=== PATIENT | male | born 1965 | race Caucasian/White ===

== ENCOUNTER 2019-07-21 23:44 | Inpatient (IN) ==
[2019-07-21] MEDS ORDERED: MoRPHine SULFATE 4 MG/ML 1 ML CARP\\VIAL IV STA (23:57)
[2019-07-21] MEDS ORDERED: ONDANSETRON INJ 2 MG/ML 2 ML VIAL IV STA (23:57)
[2019-07-22 00:33] LABS: Basophils # (auto) 0.03 K/uL (0-0.2); Basophils % (auto) 0.2 %; Eosinophils # (auto) 0.09 K/uL (0-0.5); Eosinophils % (auto) 0.7 %; Hematocrit (blood only) 46.1 % (42-52); Hemoglobin 16.5 g/dL (14.0-18.0); Immature Granulocytes # (auto) 0.27 K/uL (0.00-0.02); Lymphocytes % (auto) 18.2 %; Mean Corpuscular Hgb Conc 35.8 g/dL (32-36); Mean Corpuscular Volume 93.3 fL (80-100); Monocytes # (auto) 1.57 K/uL (0.11-0.59); Monocytes % (auto) 11.4 %; Neutrophils # (auto) 9.29 K/uL (1.4-6.5); Neutrophils % (auto) 67.5 %; Platelet Count 227 K/uL (130-400); RDW Coefficient of Variation 13.7 % (11.5-14.5); RDW Standard Deviation 46.6 fL (36.4-46.3); Red Blood Count 4.94 M/uL (4.7-6.1); White Blood Count 13.75 K/uL (4.8-10.8)
[2019-07-22 00:56] LABS: Alanine Aminotransferase 53 U/L (12-78); Albumin Level 2.9 gm/dl (3.4-5.0); Aspartate Aminotransferase 16 U/L (15-37); BUN Creatinine Ratio 21.4 (10-20); Blood Urea Nitrogen 19 mg/dl (7-18); Calcium 9.3 mg/dl (8.5-10.1); Carbon Dioxide 25 mmol/L (21-32); Chloride 105 mmol/L (98-107); Creatinine Clr Calc Pharmacy 136.2 ml/min; Est GFR (African American) 111.8; Est GFR (Non-African American) 96.5; Glucose 96 mg/dl (70-99); Potassium 3.9 mmol/L (3.5-5.1); Sodium 138 mmol/L (136-145)
[2019-07-22 01:01] LABS: Albumin Globulin Ratio 0.6 (0.9-2); Alkaline Phosphatase 77 U/L (45-117); Bilirubin,Total 0.4 mg/dl (0.2-1); Globulin 4.6 gm/dl (2.5-4.0); Total Protein 7.5 gm/dl (6.4-8.2); Troponin I < 0.015 ng/ml (0-0.045)
[2019-07-22] MEDS ORDERED: OPTIRAY 320 125ml IV PRN (01:25)
[2019-07-22] MEDS ORDERED: ONDANSETRON INJ 2 MG/ML 2 ML VIAL IV STA (01:33)
[2019-07-22] MEDS ORDERED: DOXYCYCLINE HYCLATE 100 MG in DEXTROSE 5% 100 ML IV STA (02:14)
[2019-07-22] MEDS ORDERED: ALBUT/IPRATROP 3MG/0.5MG NEB 3 ML VIAL NEB STA (02:14)
[2019-07-22] MEDS ORDERED: methylPREDNISolone 125 MG/2 ML VIAL IV STA (02:14)
[2019-07-22] MEDS ORDERED: cefTRIAXone SODIUM 2,000 MG/70 ML BAG IV STA (02:14)
[2019-07-22 02:52] LABS: Appearance Urine Clear (Clear); Bilirubin Urine Negative (Negative); Blood Urine Negative (Negative); Color Urine Yellow; Glucose Urine UA Negative (Negative); Ketones Urine Negative (Negative); Leukocyte Esterase Urine Negative (Negative); Nitrite Urine Negative (Negative); Protein Urine Negative (Negative); Specific Gravity Urine > 1.045 (1.000-1.030); Urobilinogen Urine Negative (Negative)
--- NOTE | 2019-07-22 03:01 | Emergency Department Note ---
Entered by Jennifer Alejandro acting as a scribe for ED Provider Note CHIEF COMPLAINT: Shortness of Breath and Constipation HISTORY OF PRESENT ILLNESS: The patient is a 54 year old male who presents to the Emergency Room with complaints of shortness of breath and constipation that started 6 days ago, when he had his last normal bowel movement. Since then he has felt very bloated and is short of breath. He reports no tenderness to touch of his abdomen, and says it feels hard. The patient rates his pain at a 10, and complains of pleuritic chest pain. He was in the ED over the weekend for shoulder pain, where he received pain medicine and has been taking since. The patient also reports he had 12 beers and 20 cigarettes within the last 3 hours before arriving to the hospital. The patient states that he did have some shoulder and back pain but that had since resolved. Pt denies LOC, headache, fevers, chills, diaphoresis, visual changes, neck pain, vomiting, abdominal pain, melena, hematochezia, urinary symptoms, numbness, weakness, lymphadenopathy, rash, or other complaints. REVIEW OF SYSTEMS: See HPI for pertinent positives and negatives. A total of ten systems were reviewed and were otherwise negative. PMHx/PSHx: Diverticulitis Obesity SOCIAL HISTORY: Patient lives at home. PHYSICAL EXAM: GENERAL: Awake, alert, uncomfortable, mild distress HENT: Normocephalic, atraumatic. Oropharynx unremarkable. EYES: PERRL. Normal conjunctiva. Sclera non-icteric. NECK: Inspection normal. Non-tender. Supple. No nuchal rigidity. FROM. No masses. RESPIRATORY: Clear to auscultation. No wheezes. No rales. Normal respiratory effort. CARDIAC: Normal rate. Normal rhythm. No murmurs. No rubs. Extremities warm and well perfused. Pulses equal. No JVD. GI: Abdomen distended. No tenderness to palpation. No rebound or guarding. No masses. RECTAL: Deferred. MUSCULOSKELETAL: Atraumatic. Chest examination reveals no tenderness. The back is symmetrical on inspection without obvious abnormality. There is no CVA tenderness to palpation. No joint edema. LOWER EXTREMITIES: Calves are equal size bilaterally and non-tender. 1+ edema. Chronic venous discoloration. NEURO: Normal sensorium. No sensory or motor deficits noted. SKIN: No rash or jaundice noted. EMERGENCY DEPARTMENT COURSE: 2355: Past medical records reviewed. The patient was evaluated in room B05, and a complete history and physical examination were performed. 0101: The patient's D-dimer is markedly elevated, therefore he is being sent for chest and abdominal imaging. 0230: patient was reassessed. He was informed of the findings. Nebulizer treatment ordered. Ultrasound imaging ordered. 0235: Consultation with internal medicine performed. Patient will be seen for further management. MEDICAL DECISION MAKING: B5 Prior records/ancillary studies reviewed. The patient was recently in the ER for a musculoskeletal injury. Triage Nursing notes reviewed and agree them. Additional history obtained from the family. The patient's history was concerning for constipation and shortness of breath. Differential diagnosis: Etiologies such as functional constipation, obstruction, diverticulitis, malignancy, pneumonia, COPD, reactive airway disease, CHF, cardiac ischemia, pulmonary embolism, pneumothorax, musculoskeletal, infections, gastrointestinal, as well as others were entertained. Physical examination: As above. The patient has some abdominal distention without any focal tenderness. He did have increased work of breathing. ER treatment provided: IV morphine IV Zofran x2 On reassessment the patient felt better with regards to his nausea and his abdomen however that he was still having some increased work of breathing. IV Solu-Medrol IV DuoNeb IV doxycycline IV Rocephin Diagnostic interpretation by me: The electrocardiogram was negative for skin change. The labs revealed a moderate leukocytosis with left shift on CBC concerning for infection. Chemistry panel unremarkable. Imaging studies: Chest x-ray chest imaging revealed increased markings bilaterally. No pneumothorax. CT PE study was performed. There was a suboptimal dye load noted per radiology and they could not rule out a pulmonary embolus. There is no large central or saddle embolus noted. He did have bilateral infiltrates noted which were peripheral. This could be consistent with a pneumonitis or cryptogenic orga nizing pneumonia. No pneumothorax. CT scan of the abdomen pelvis revealed diverticulosis as well as moderate constipation. No other acute process was noted. Ultrasound imaging of the bilateral lower extremities was pending. The patient has increased work of breathing and a pneumonitis/pneumonia. PE could not be ruled out and the patient does have a high d-dimer. He was treated for pneumonia with the IV antibiotics. He had symptom treatment for the breathing and abdominal discomfort as well. He may need anticoagulation or additional chest imaging depending upon the results of the ultrasound. Given his symptoms, signs, and findings he will need further management in the hospital Consultation: A consultation was placed with Dr. Sotomayor, the hospitalist. The case was discussed and diagnostics were reviewed. The patient was evaluated in the ER for further treatment. IMPRESSION: Shortness of breath Pneumonia Leukocytosis Constipation Abdominal distention PLAN: Admit The scribe's documentation has been prepared under my direction and personally reviewed by me in its entirety. I confirm that the note above accurately reflects all work, treatment, procedures, and medical decision making performed by me. Impression & Plan Pneumonia, Constipation Past Med/Surg History Medical History Depression (Chronic) Diverticulosis (Chronic) Diverticulitis (Resolved) Dyslipidemia (Chronic) Obesity (Chronic) Surgical History No significant past surgical history (Chronic) Social History Feels Safe at Home: Yes Smoking Status: Current every day smoker Results & Data Vital Signs Vital Signs - 24 hr 07/21/19 23:52 07/22/19 00:00 07/22/19 01:23 Temperature 37.2 C Temperature Source Oral Sepsis Recent Fever Within 48 Hours No Sepsis Action Taken by Nursing No Action Required Pulse Rate 97 H Pulse Rate [Right] 91 H 98 H Pulse Rhythm Regular Pulse Rhythm [Right] Regular Pulse Strength Normal Pulse Strength [Right] Normal Respiratory Rate 25 H 25 H 22 Respiratory Effort / Characteristics Spontaneous Labored Labored Respiratory Depth Normal Normal Respiratory Pattern Regular Regular Blood Pressure 146/83 H Blood Pressure [Left Arm] 131/90 140/93 Blood Pressure Mean 104 Blood Pressure Mean [Left Arm] 103 108 Blood Pressure Position Sitting Blood Pressure Position [Left Arm] Sitting Pulse Oximetry 95 94 97 Oxygen Delivery Method Room Air Room Air Nasal Cannula Oxygen Flow Rate 3 07/22/19 02:32 Temperature Temperature Source Sepsis Recent Fever Within 48 Hours Sepsis Action Taken by Nursing Pulse Rate Pulse Rate [Right] 98 H Pulse Rhythm Pulse Rhythm [Right] Pulse Strength Pulse Strength [Right] Respiratory Rate 22 Respiratory Effort / Characteristics Short of Breath Respiratory Depth Respiratory Pattern Blood Pressure Blood Pressure [Left Arm] Blood Pressure Mean Blood Pressure Mean [Left Arm] Blood Pressure Position Blood Pressure Position [Left Arm] Pulse Oximetry 94 Oxygen Delivery Method Room Air Oxygen Flow Rate Home Medications Current Medication List: was personally reviewed by me Laboratory Data Attestation: I reviewed the patient's lab results. Result diagrams: 07/22/19 00:24 07/22/19 00:24 Lab Results 07/22/19 07/22/19 07/22/19 Range/Units 00:24 00:24 00:34 WBC 13.75 H (4.8-10.8) K/uL RBC 4.94 (4.7-6.1) M/uL Hgb 16.5 (14.0-18.0) g/dL Hct 46.1 (42-52) % MCV 93.3 (80-100) fL MCH 33.4 (25-34) pg MCHC 35.8 (32-36) g/dL RDW Std Deviation 46.6 H (36.4-46.3) fL RDW Coeff of Farzaneh 13.7 (11.5-14.5) % Plt Count 227 (130-400) K/uL MPV 10.0 (7.4-10.4) fL Immature Gran % (Auto) 2.0 % Neut % (Auto) 67.5 % Lymph % (Auto) 18.2 % Keith % (Auto) 11.4 % Eos % (Auto) 0.7 % Baso % (Auto) 0.2 % Immature Gran # (Auto) 0.27 H (0.00-0.02) K/uL Neut # (Auto) 9.29 H (1.4-6.5) K/uL Lymph # (Auto) 2.50 (1.2-3.4) K/uL Keith # (Auto) 1.57 H (0.11-0.59) K/uL Eos # (Auto) 0.09 (0-0.5) K/uL Baso # (Auto) 0.03 (0-0.2) K/uL POC D-Dimer > 450 H* (0-450) ng/mlFEU Sodium 138 (136-145) mmol/L Potassium 3.9 (3.5-5.1) mmol/L Chloride 105 (98-107) mmol/L Carbon Dioxide 25 (21-32) mmol/L Anion Gap 8.0 (3-11) BUN 19 H (7-18) mg/dl Creatinine 0.87 (0.6-1.4) mg/dl Est Cr Clr Drug Dosing 136.2 ml/min Est GFR ( Amer) 111.8 Est GFR (Non-Af Amer) 96.5 BUN/Creatinine Ratio 21.4 H (10-20) Glucose 96 (70-99) mg/dl Calcium 9.3 (8.5-10.1) mg/dl Total Bilirubin 0.4 (0.2-1) mg/dl AST 16 (15-37) U/L ALT 53 (12-78) U/L Alkaline Phosphatase 77 (45-117) U/L Troponin I < 0.015 (0-0.045) ng/ml Total Protein 7.5 (6.4-8.2) gm/dl Albumin 2.9 L (3.4-5.0) gm/dl Globulin 4.6 H (2.5-4.0) gm/dl Albumin/Globulin Ratio 0.6 L (0.9-2) Lipase 76 (73-393) U/L Urine Color Urine Appearance (Clear) Urine pH (4.5-7.5) Ur Specific Tensed (1.000-1.030) Urine Protein (Negative) Urine Glucose (UA) (Negative) Urine Ketones (Negative) Urine Blood (Negative) Urine Nitrite (Negative) Urine Bilirubin (Negative) Urine Urobilinogen (Negative) Ur Leukocyte Esterase (Negative) 07/22/19 Range/Units 02:40 WBC (4.8-10.8) K/uL RBC (4.7-6.1) M/uL Hgb (14.0-18.0) g/dL Hct (42-52) % MCV (80-100) fL MCH (25-34) pg MCHC (32-36) g/dL RDW Std Deviation (36.4-46.3) fL RDW Coeff of Afrzaneh (11.5-14.5) % Plt Count (130-400) K/uL MPV (7.4-10.4) fL Immature Gran % (Auto) % Neut % (Auto) % Lymph % (Auto) % Keith % (Auto) % Eos % (Auto) % Baso % (Auto) % Immature Gran # (Auto) (0.00-0.02) K/uL Neut # (Auto) (1.4-6.5) K/uL Lymph # (Auto) (1.2-3.4) K/uL Keith # (Auto) (0.11-0.59) K/uL Eos # (Auto) (0-0.5) K/uL Baso # (Auto) (0-0.2) K/uL POC D-Dimer (0-450) ng/mlFEU Sodium (136-145) mmol/L Potassium (3.5-5.1) mmol/L Chloride (98-107) mmol/L Carbon Dioxide (21-32) mmol/L Anion Gap (3-11) BUN (7-18) mg/dl Creatinine (0.6-1.4) mg/dl Est Cr Clr Drug Dosing ml/min Est GFR ( Amer) Est GFR (Non-Af Amer) BUN/Creatinine Ratio (10-20) Glucose (70-99) mg/dl Calcium (8.5-10.1) mg/dl Total Bilirubin (0.2-1) mg/dl AST (15-37) U/L ALT (12-78) U/L Alkaline Phosphatase (45-117) U/L Troponin I (0-0.045) ng/ml Total Protein (6.4-8.2) gm/dl Albumin (3.4-5.0) gm/dl Globulin (2.5-4.0) gm/dl Albumin/Globulin Ratio (0.9-2) Lipase (73-393) U/L Urine Color Yellow Urine Appearance Clear (Clear) Urine pH 5.0 (4.5-7.5) Ur Specific Tensed > 1.045 H (1.000-1.030) Urine Protein Negative (Negative) Urine Glucose (UA) Negative (Negative) Urine Ketones Negative (Negative) Urine Blood Negative (Negative) Urine Nitrite Negative (Negative) Urine Bilirubin Negative (Negative) Urine Urobilinogen Negative (Negative) Ur Leukocyte Esterase Negative (Negative) Administered Medications Ioversol (Optiray 320 125ml) 125 ml IV ONCE PRN PRN Reason: Interaction Checking Stop: 07/26/19 01:24 Last Admin: 07/22/19 01:25 Dose: 119 ml Documented by: [id number] Discontinued Medications Albuterol (Duoneb) 3 ml NEB NOW STA Stop: 07/22/19 02:15 Last Admin: 07/22/19 02:32 Dose: 3 ml Documented by: [id number] Ceftriaxone Sodium (Rocephin) 2,000 mg in 70 mls @ 140 mls/hr IV NOW STA Stop: 07/22/19 02:43 Last Admin: 07/22/19 02:36 Dose: 140 mls/hr Documented by: [id number] Methylprednisolone (Solumedrol) 125 mg IV NOW STA Stop: 07/22/19 02:15 Last Admin: 07/22/19 02:37 Dose: 125 mg Documented by: [id number] Morphine Sulfate (Morphine Sulfate) 4 mg IV NOW STA Stop: 07/21/19 23:58 Last Admin: 07/22/19 01:29 Dose: 4 mg Documented by: [id number] Ondansetron HCl (Zofran) 4 mg IV NOW STA Stop: 07/21/19 23:58 Last Admin: 07/22/19 00:46 Dose: 4 mg Documented by: [id number] Ondansetron HCl (Zofran) 4 mg IV NOW STA Stop: 07/22/19 01:34 Last Admin: 07/22/19 01:41 Dose: 4 mg Documented by: [id number] Imaging Data My Impression: Imaging studies: Chest x-ray. Findings: A chest x-ray was performed and revealed no pneumothorax, effusion, infiltrate, pulmonary edema, free air under the diaphragm, or wide mediastinum. Impression: No acute disease. Radiologist's Impression: CT scan of the chest reveals a limited and suboptimal contrast bolus opacification of the pulmonary arteries. The exam is not sufficient to exclude pulmonary embolism given the technical limitations. No central or saddle embolus noted. Small right pleural effusion. Trace pericardial effusion. Nondependent bilateral lung opacities with airspace opacities many of which which were peripheral. There is a possibility of infectious and noninfectious etiologies including pneumonitis or cardiogenic organizing pneumonia. Small hiatal hernia. CT scan of the abdomen and pelvis with contrast was performed revealed diverticulosis. I distended left colon. No diverticulitis or inflammatory changes noted. Mildly distended small bowel segments which are from may represent an ileus. There is moderate fecal distention of the right sided transverse colon and descending colon. No appendicitis or other acute process. No ureteral calculus or hydronephrosis. ECG Data Attestation: I personally reviewed and interpreted this ECG as follows: Indication: SOB/dyspnea Rate (beats per minute): 90 Findings: no PAC, no PVC, no ST depression and no ST elevation Discharge Plan Visit Data Chief Complaint: Constipation Stated Complaint: CONSTIPATION/SHOULDER PAIN/SHORT OF BREATH Other Complaint: Shoulder Pain Shortness of Breath/Dyspnea ED Provider: Ty Aparicio Discharge Problem: Pneumonia, Constipation Forms Stand Alone Forms: My [facility] Prescriptions Prescriptions: No Action atorvastatin 10 mg tablet 10 mg PO QAM RF: 0 fluoxetine 20 mg capsule 20 mg PO QAM RF: 0 cyclobenzaprine 10 mg tablet 10 mg PO TID PRN (Reason: muscle spasm) Qty: 30 RF: 0 ibuprofen 600 mg Tablet 600 mg PO Q6H PRN (Reason: Pain) RF: 0 prednisone 10 mg Tablet 10 mg PO DAILY RF: 0 Referrals Referrals: Steev Rodarte DO [Primary Care Provider] - The scribe's documentation has been prepared under my direction and personally reviewed by me in its entirety. I confirm that the note above accurately reflects all work, treatment, procedures, and medical decision making performed by me.
[2019-07-22] MEDS ORDERED: LACTULOSE SYRUP 20 GM/30 ML UDC PO STA (03:19)
[2019-07-22] MEDS ORDERED: IPRATROPIUM BROMIDE NEB SOLN 0.02% 2.5 ML VIAL INH PRN (05:18)
[2019-07-22] MEDS ORDERED: NITROGLYCERIN SL 0.4 MG/TAB TAB SL PRN (05:18)
[2019-07-22] MEDS ORDERED: LEVALBUTEROL 1.25MG/0.5ML NEB INH PRN (05:18)
[2019-07-22] MEDS ORDERED: XOPENEX/ATROVENT 1.25mg/0.5MG NEB COMBO NEB PRN (05:18)
[2019-07-22] MEDS ORDERED: GABAPENTIN 1200MG ALCOHOL WITHDRAWAL LOAD PO STA (05:18)
[2019-07-22] MEDS ORDERED: ONDANSETRON INJ 2 MG/ML 2 ML VIAL IV PRN (05:18)
[2019-07-22] MEDS: CYCLOBENZAPRINE HCL 10 MG TAB PO PRN ×2 (05:51→20:16)
[2019-07-22] MEDS ORDERED: MULTI-VITAMIN INFUSION 10 ML, THIAMINE HCL 100 MG, FOLIC ACID 1 MG in SODIUM CHLORIDE 0... IV ONE (06:00)
[2019-07-22] MEDS ORDERED: GABAPENTIN 600 MG TAB PO ONE (06:00)
--- NOTE | 2019-07-22 06:13 | History and Physical Report ---
DATE OF ADMISSION: 07/22/2019 CHIEF COMPLAINT: Shortness of breath, abdominal pain, constipation. HISTORY OF PRESENT ILLNESS: This is a 54-year-old male with past medical history significant for morbid obesity, hyperlipidemia, impaired fasting glucose, depression, tobacco disorder, alcohol abuse, presents with complaining of shortness of breath and abdominal discomfort and constipation. The patient had sprained his back a few days ago. He was in the ER in July 18 for back pain. He was discharged on pain medications and Flexeril. The patient is also taking oxycodone from his friend's which is 3 years old. He is somewhat constipated. He had moved bowels today morning, but it was a small amount. Around 10:30 in the night, he developed shortness of breath, also chest pain when taking deep breaths. He has a smoker's cough. Denies any fever, chills. Complains of nausea. Requesting to help him relieve his constipation. Denies any headache, no blurred vision, no sore throat, no difficulty swallowing. Appetite is okay. Ambulates okay. He drinks 12 beers every day and drank today too. Denies any withdrawal symptoms in the past. Denies any blood in the stools or black stools. Denies any burning micturition or hematuria. Has mild swelling in the legs, no rash. ALLERGIES: No known drug allergies. PAST MEDICAL HISTORY: As mentioned above. PAST SURGICAL HISTORY: Colonoscopy. MEDICATIONS: The patient is on Prozac 60 mg p.o. daily, prednisone tapering dose, atorvastatin 10 mg p.o. daily. FAMILY HISTORY: Significant for: Father had alcoholism and diabetes. Mother has AAA rupture. SOCIAL HISTORY: , smokes 0.1 packs a day for 25 years. Alcohol 12 beers every day. No drug use as per records. REVIEW OF SYMPTOMS: As per HPI. Rest of review of systems is negative. PHYSICAL EXAMINATION: GENERAL: The patient is morbidly obese, somewhat tachycardic currently. HEENT: No pallor, no icterus. Pupils equal, round, reactive to light. NECK: No JVD, no neck masses, no carotid bruits. CARDIOVASCULAR: S1, S2 heard, regular rate and rhythm, no murmur, no gallop. RESPIRATORY SYSTEM: Normal AP diameter. No accessory muscle use. No wheezing, no crackles. ABDOMEN: Soft, bowel sounds present. Mild diffuse tenderness, no guarding, no rigidity. Somewhat distended. CENTRAL NERVOUS SYSTEM: Cranial nerves II-XII grossly nonfocal. EXTREMITIES: Mild pedal edema, no erythema seen. LABORATORIES DATA: WBC 13, hemoglobin 16.5, hematocrit 46.1, platelets 227. Point of D-dimer was greater than 450. Sodium 138, potassium 3.9, chloride 105, bicarbonate 25, BUN 19, creatinine 0.8, serum glucose 96, calcium 9.8, total bilirubin 0.4, AST 60, ALT 43, alkaline phosphatase 77. Troponin I less than 0.015. Lipase 76. Urinalysis negative. IMAGING: Chest x-ray: No acute findings. CT abdomen and pelvis, unofficial report of constipation. Chest CTA, unofficial report, not enough dye, but no obvious PE and also possible pneumonitis. EKG:, normal sinus rhythm, rate of 90, no significant change from previous EKG. ASSESSMENT AND PLAN: This is a 54-year-old male who presents with shortness of breath, abdominal discomfort, constipation. 1. Shortness of breath. The patient complained of shortness of breath and somewhat tachypneic, but mainly complains of abdominal discomfort and constipation. He recently had sprained his back and was prescribed prednisone by PCP and in the ER also had prescription of ibuprofen and , Flexeril. He is also taking oxycodone from his friend. CTA of the chest, no obvious PE, but was told not enough dye, so we will follow the official report. Point of care D-dimer is elevated. Lower extremity Doppler NO DVT. Possible pneumonitis. We will place him on IV Rocephin and doxycycline and monitor in tele floor.Follow official report of CTA chest. IF any concerns can get repeat imaging after 24hrs. 2. Abdominal pain and constipation, somewhat distention of abdomen. We will wait for official CAT scan report . The patient also requests to relieve his constipation. We will give lactulose and possible will give soapsuds enema in am.. 3. Possible pneumonia. Antibiotics as above. Follow the official report of CAT scan. 4. Alcoholism. The patient is drinking 12 beers every day. He has never had any withdrawal symptoms. We will place him on banana bag, IV thiamine, IV folic acid, multivitamins p.o., gabapentin protocol and IV Ativan p.r.n. Closely monitor. 5. Morbid obesity, needs counseling, may need sleep study as an outpatient. 6. Depression. Continue Prozac. 7. Hyperlipidemia. Continue statin. 8. Impaired fasting glucose. We will place him on diabetic diet and follow HbA1c levels. 9. Deep venous thrombosis prophylaxis, sequential compression devices for now. 10. Disposition: Closely monitor in tele floor. Level 1 full code. MTDD
--- NOTE | 2019-07-22 06:22 | Ultrasound Report ---
US venous doppler LE BI HISTORY: Pain. Edema. EVAL FOR DVT, SOB, +DIMER COMPARISON STUDY: None. FINDINGS: There is normal compressibility, flow, and augmentation within the bilateral lower extremit y deep venous systems. IMPRESSION: No DVT within the right or left lower extremity. The above report was generated using voice recognition software. It may contain grammatical, syntax or spelling errors. Electronically signed by: Amauri Ann M.D. 07/22/2019 6:20 AM
[2019-07-22] MEDS ORDERED: POLYETHYLENE (MIRALAX) 17 GM PACK ONE (06:27)
[2019-07-22] MEDS ORDERED: POLYETHYLENE (MIRALAX) 17 GM PACK PO SCH (06:45)
--- NOTE | 2019-07-22 06:49 | CT Scan Report ---
CT abd pelvis IV con only CT DOSE: 2668.94 mGy.cm HISTORY: Dyspnea left chest,. SOB, abd distension, +dimer, cr0.87 TECHNIQUE: Multiaxial CT images of the abdomen and pelvis were performed following the use of intrave nous contrast. A dose lowering technique was utilized adhering to the principles of ALARA. COMPARISON STUDY: 02/25/2009 FINDINGS: Interval small right effusion. Mild fatty replacement of the liver. Spleen and pancreas are unremarkable. Kidneys enhance uniformly. No evidence for hydronephrosis. Several small renal microcysts unchanged. Mild increase in fecal load within the proximal colon. No evidence for bowel obstruction pattern. Sev eral scattered colonic diverticuli with no evidence of diverticulitis. Small bilateral fat-containing nonobstructing inguinal hernias. IMPRESSION: 1. Bilateral nonobstructing fat-containing inguinal hernia.. 2. Mild increase in fecal load within the proximal colon. 3. Small right pleural effusion. The above report was generated using voice recognition software. It may contain grammatical, syntax or spelling errors. Electronically signed by: Amauri Ann M.D. 07/22/2019 6:48 AM
[2019-07-22 06:54] LABS: Prothrombin Time 10.3 Seconds (9.0-12.0)
[2019-07-22 07:09] LABS: Estimated Average Glucose 126 mg/dl
--- NOTE | 2019-07-22 07:11 | XRay Report ---
XR chest 1V portable CLINICAL HISTORY: 54 years-old Male presenting with SOB, constipation, abd distension. TECHNIQUE: Portable upright AP view of the chest was obtained. COMPARISON: None. FINDINGS: Cardiac silhouette enlarged. Slight asymmetric density of the right lung may relate to overlapping so ft tissues. No focal opacity. No large effusion or pneumothorax. Degenerative changes of the thoracic spine. IMPRESSION: 1. Cardiomegaly. No other convincing evidence of acute cardiopulmonary disease. Electronically signed by: Yemi Al M.D. 07/22/2019 7:09 AM
[2019-07-22] MEDS ORDERED: BISACODYL 10 MG SUPP PR STA (07:31)
--- NOTE | 2019-07-22 07:46 | CT Scan Report ---
CT angio chest PE protocol CLINICAL HISTORY: 54 years-old Male presenting with left chest pain, shortness of breath, abdominal d istention, positive d-dimer. TECHNIQUE: Multidetector CT angiography of the chest was performed after administration of intravenou s contrast. 3-D volumetric and/or maximum intensity projection (MIP) images were subsequently reconst ructed for review. IV contrast: 119 mL of Optiray 320. One or more dose lowering techniques were used consistent with the principles of ALARA (as low as reasonably achievable), including automatic expos ure control, mA or kV adjustment to individual patient size, and/or use of iterative reconstruction. COMPARISON: Chest x-ray from the previous day. CT DOSE (mGy.cm): The estimated cumulative dose is 2668.94. FINDINGS: Election Watcher topogram: Unremarkable. Pulmonary vasculature: The study is suboptimal for the assessment of the pulmonary vascular tree secondary to timing of the contrast bolus and respiratory motion artifact. Allowing for limited image quality, no central fillin g defect to suggest pulmonary embolus. Main pulmonary artery is not enlarged. No flattening of the in terventricular septum. No intracardiac filling defect. No reflux of contrast into the hepatic veins. Remaining chest: Soft tissues: Normal thyroid and thoracic inlet. Gynecomastia. Few scattered subcentimeter right abiola tracheal mediastinal lymph nodes, nonspecific. 4 vessel aortic arch. Normal heart size. Small right p leural effusion. Upper abdomen normal. Lungs and airways: No pneumothorax. Central airways patent. Bronchial wall thickening evident to a mi ld degree in the right upper lobe. Pulmonary arteries are mildly enlarged relative to adjacent bronch i. Mild interlobular septal thickening in the right upper lobe. Dependent consolidation in the bean viner ior basal right lower lobe, which may in part reflect passive atelectasis. Patchy peripheral groundgl ass and solid infiltrates in the upper lobes. The greatest degree of solid peripheral consolidation i s noted at the right apex. Musculoskeletal: Degenerative changes of the spine. IMPRESSION: 1. Allowing for suboptimal image quality, no evidence of pulmonary embolus. 2. Upper lobe peripheral groundglass and solid infiltrates. The distribution of these inflammatory c hanges suggests an airway etiology. Differential considerations include eosinophilic pneumonia, eosin ophilic granulomatosis with polyangiitis, cryptogenic organizing pneumonia, or an atypical infectious pneumonia among other etiologies. Follow-up chest CT in 3 months after treatment recommended. 3. Small right pleural effusion with right basilar atelectasis. Electronically signed by: Yemi Al M.D. 07/22/2019 7:45 AM
[2019-07-22] MEDS: SODIUM CHLORIDE 0.9% 1000ML 1,000 ML IV SCH ×2 (08:06→20:15)
[2019-07-22] MEDS: FLUOXETINE HCL 20 MG CAP PO SCH ×2 (08:08→08:09)
[2019-07-22] MEDS: ATORVASTATIN 10 MG TAB PO SCH (08:09)
[2019-07-22] MEDS: CEROVITE ADV FORMULA TAB PO SCH (08:17)
[2019-07-22] MEDS: LORazepam 1.5 MG/3 ML VIAL IV PRN ×2 (08:18→12:20)
[2019-07-22 09:10] LABS: Amphetamines+Metham, Urine Neg (Neg); Barbiturates, Urine Neg (Neg); Benzodiazepine, Urine Neg (Neg); Cocaine, Urine Neg (Neg); MDMA (Ecstacy), Urine Neg (Neg); Methadone, Urine Neg (Neg); Opiate, Urine Pos (Neg); Phencyclidine, Urine Neg (Neg)
[2019-07-22] MEDS ORDERED: HydrALAZINE HCL 20 MG/ML VIAL IV ONE (09:55)
[2019-07-22] MEDS: cloNIDine HCl 0.1 MG TAB PO SCH ×2 (10:01→20:14)
[2019-07-22 10:17] LABS: Base Excess ABG -1.1 mEq/L (-9-1.8); HCO3 ABG 23 mmol/L (19-24); Oxygen Saturation ABG 92.7 % (90-95); PCO2 ABG 36 mmHg (35-46); PO2 ABG 65 mm/Hg (80-95); pH ABG 7.42 (7.35-7.45)
[2019-07-22 10:18] LABS: Allen Test Pos (Pos)
[2019-07-22] MEDS ORDERED: LEVALBUTEROL HCL 1.25 MG/3 ML NEB INH SCH (11:00)
[2019-07-22] MEDS ORDERED: LEVALBUTEROL HCL 1.25 MG/3 ML NEB INH PRN (11:00)
[2019-07-22] MEDS ORDERED: LEVALBUTEROL 1.25MG/0.5ML NEB INH SCH (11:00)
[2019-07-22] MEDS: LEVALBUTEROL HCL 1.25 MG/3 ML NEB INH SCH ×4 (11:30→23:08)
[2019-07-22] MEDS: GABAPENTIN 600 MG TAB PO SCH ×2 (12:01→18:57)
[2019-07-22] MEDS: HEPARIN SOD 5,000 UNIT/0.5 ML VIAL SQ SCH ×2 (14:25→22:05)
[2019-07-22] MEDS: DOXYCYCLINE HYCLATE 100 MG in DEXTROSE 5% 100 ML IV SCH (14:25)
[2019-07-22] MEDS ORDERED: PIPERACILL/TAZOBAC CONSULT ACTIVE PRN (16:01)
[2019-07-22] MEDS: NITROGLYCERIN 2% OINTMENT 30GM TUBE EXT SCH ×2 (16:04→20:19)
[2019-07-22] MEDS ORDERED: PIPERACILLIN/TAZOBACTAM 4.5 GM in DEXTROSE 5% 100 ML IV ONE (16:15)
--- NOTE | 2019-07-22 18:01 | Consultation Report ---
DATE OF CONSULTATION: 07/22/2019 PATIENT OF: TIME: 1500 REASON FOR CONSULTATION: Progressive dyspnea/multifocal pneumonia. HISTORY OF PRESENT ILLNESS: A 54-year-old morbidly obese white male who was admitted earlier today by Dr. Sotomayor. The patient has a history not only with morbid obesity and dyslipidemia but impaired fasting glucose, depression, longstanding tobacco use and both acute and chronic alcohol abuse. Apparently, he presented to the ER with progressive dyspnea, abdominal discomfort and constipation. He had been seen 4 days before in the ER with back sprain having fallen. He was placed on pain medication of Flexeril. Apparently, he was also getting oxycodone from a friend and was severely constipated. He drinks 12-15 beers every day and continues to smoke up to the day of admission. When I went in to see him, he was responsive but hypersomnolent and apparently he had just been given IV Ativan for agitation. I could get no additional history from him. Apparently Dr. Steve Rodarte is his primary care physician. White count was 13,000 on admission. Hematocrit 46. Apparently, he had smoked 20 cigarettes within the past 3 hours prior to admission. In the ER, he was given IV morphine, Zofran, Solu-Medrol, aerosolized bronchodilator and started on IV doxycycline and Rocephin. CTA was done, was suboptimal, but a large central or saddle embolus was ruled out. He had bilateral infiltrates with consolidation involving the posterior basal right lower lobe with patchy peripheral ground-glass and solid infiltrates in the upper lobes and bronchial thickening noted. Small right pleural effusion with right basilar atelectasis once again noted. Venous Doppler shows no DVT within the right or left lower extremity. EKG normal sinus rhythm without acute changes. ABGs on 4 liters on admission pH 7.42, pCO2 of 36, pO2 of 65. Urine was positive for opiates and marijuana. Urine was extremely concentrated white count 13,000. PHYSICAL EXAMINATION: GENERAL: Well-developed, morbidly obese white male, arousable, able to converse with me but increased hypersomnolence noted. VITAL SIGNS: Blood pressure 164/114, pulse 92 and regular, respiratory rate 16, temperature 36.5, O2 sat 91%, but requiring 6 liters. SKIN: Without lesion. HEENT: Atraumatic, normocephalic. PERRLA. LUNGS: Distant P and A with scattered rales. CARDIAC: Regular rate and rhythm. I do not appreciate a gallop. ABDOMEN: Soft, markedly protuberant, tender in the lateral lower abdominal area, but no rebound tenderness or guarding. EXTREMITIES: Chronic stasis changes, +1 pitting edema. NEUROLOGICAL: Cranial nerves II-XII grossly intact. He is oriented x2, but hypersomnolent. The patient receiving IV thiamine and folic acid, multivitamin, and gabapentin protocol and IV Ativan. OVERALL ASSESSMENT: A 54-year-old morbidly obese white male with chronic obstructive pulmonary disease presents with acute alcohol intoxication and suspect a degree of acute hypoxemic respiratory failure. I would have suspected a degree of chronic alveolar hypoventilation, but patient's ABG suggest a respiratory alkalosis with increased A-a gradient. CT scan of the chest does show more peripheral opacities involving the upper lobe that could suggest acute eosinophilic pneumonia, but suspect a degree of acute on chronic aspiration with some degree of mucoid impaction. I do not see an obvious mass or bronchogenic neoplasm and this could be an atypical presentation for pulmonary edema. I would support patient with O2 supplementation, use BiPAP as needed if the patient were to develop worsening signs of respiratory failure. I would be careful given his weight and body habitus using too much IV Ativan and suppressing his respiratory drive. I agree with placing him on the current protocol and watch for any signs of incipient respiratory failure. The gabapentin and IV Ativan could make him increasingly more hypersomnolent. I would discuss further treatment and coverage for aspiration pneumonia and avoid excessive fluid administration. We will follow along with you. Thank you very much for this consultation. SHELTON
[2019-07-22] MEDS: ACETAMINOPHEN 325 MG TAB PO PRN (18:58)
[2019-07-22] MEDS: PIPERACILLIN/TAZOBACTAM 4.5 GM in DEXTROSE 5% 100 ML IV SCH (22:05)
[2019-07-23] MEDS ORDERED: cefTRIAXone SODIUM 2,000 MG in DEXTROSE 5% 50 ML IV SCH (02:00)
[2019-07-23] MEDS: ACETAMINOPHEN 325 MG TAB PO PRN ×2 (02:51→07:17)
[2019-07-23] MEDS: GABAPENTIN 600 MG TAB PO SCH ×3 (02:52→18:47)
[2019-07-23] MEDS: NITROGLYCERIN 2% OINTMENT 30GM TUBE EXT SCH ×2 (02:52→09:33)
[2019-07-23] MEDS: DOXYCYCLINE HYCLATE 100 MG in DEXTROSE 5% 100 ML IV SCH ×2 (02:56→12:54)
[2019-07-23] MEDS: LEVALBUTEROL HCL 1.25 MG/3 ML NEB INH SCH ×6 (03:26→23:18)
[2019-07-23 05:46] LABS: Basophils # (auto) 0.01 K/uL (0-0.2); Basophils % (auto) 0.1 %; Eosinophils # (auto) 0.01 K/uL (0-0.5); Eosinophils % (auto) 0.1 %; Hematocrit (blood only) 42.1 % (42-52); Hemoglobin 14.5 g/dL (14.0-18.0); Immature Granulocytes # (auto) 0.29 K/uL (0.00-0.02); Immature Granulocytes % (auto) 1.6 %; Lymphocytes # (auto) 1.75 K/uL (1.2-3.4); Lymphocytes % (auto) 9.9 %; Mean Corpuscular Hgb Conc 34.4 g/dL (32-36); Mean Corpuscular Volume 93.3 fL (80-100); Mean Platelet Volume 10.2 fL (7.4-10.4); Monocytes % (auto) 10.7 %; Neutrophils # (auto) 13.75 K/uL (1.4-6.5); Neutrophils % (auto) 77.6 %; Platelet Count 223 K/uL (130-400); RDW Coefficient of Variation 13.8 % (11.5-14.5); RDW Standard Deviation 47.6 fL (36.4-46.3); Red Blood Count 4.51 M/uL (4.7-6.1); White Blood Count 17.71 K/uL (4.8-10.8)
[2019-07-23] MEDS: PIPERACILLIN/TAZOBACTAM 4.5 GM in DEXTROSE 5% 100 ML IV SCH ×3 (05:48→21:33)
[2019-07-23] MEDS: HEPARIN SOD 5,000 UNIT/0.5 ML VIAL SQ SCH ×3 (05:52→21:35)
[2019-07-23 06:22] LABS: Albumin Level 2.6 gm/dl (3.4-5.0); BUN Creatinine Ratio 24.2 (10-20); Bilirubin Direct 0.1 mg/dl (0-0.2); Calcium 9.1 mg/dl (8.5-10.1); Creatinine Clr Calc Pharmacy 169.3 ml/min; Est GFR (Non-African American) 106.1; Potassium 3.9 mmol/L (3.5-5.1)
[2019-07-23 06:24] LABS: BUN Creatinine Ratio 25.5 (10-20); Calcium 8.8 mg/dl (8.5-10.1); Creatinine Clr Calc Pharmacy 174.3 ml/min; Est GFR (African American) 124.5; Est GFR (Non-African American) 107.4; Magnesium 2.3 mg/dl (1.8-2.4)
[2019-07-23 06:25] LABS: Albumin Globulin Ratio 0.6 (0.9-2); Bilirubin,Total 0.5 mg/dl (0.2-1); Globulin 4.1 gm/dl (2.5-4.0); Total Protein 6.7 gm/dl (6.4-8.2)
[2019-07-23] MEDS: FLUOXETINE HCL 20 MG CAP PO SCH ×2 (07:19)
[2019-07-23] MEDS: ATORVASTATIN 10 MG TAB PO SCH (07:19)
[2019-07-23] MEDS: CEROVITE ADV FORMULA TAB PO SCH (07:19)
[2019-07-23] MEDS: CYCLOBENZAPRINE HCL 10 MG TAB PO PRN (07:20)
[2019-07-23 08:09] LABS: Folate (Folic Acid) 15.26 ng/ml (>5.38)
[2019-07-23] MEDS: FOLIC ACID 1 MG in SYRINGE 9.8 ML IV SCH (08:22)
[2019-07-23] MEDS: THIAMINE HCL 100 MG in SYRINGE 9 ML IV SCH (08:22)
[2019-07-23] MEDS: cloNIDine HCl 0.1 MG TAB PO SCH ×2 (09:23→21:34)
--- NOTE | 2019-07-23 12:23 | Progress Note ---
DATE: 07/23/2019 TIME: 1100 hours. Chart reviewed, the patient examined. SUBJECTIVE: The patient is much more alert today. The effects of his acute ethanol intoxication and the administration of IV Ativan and gabapentin for agitation and alcohol withdrawal are less problematic today. He is awake, alert, oriented, has a longstanding smoking history. He had become progressively more dyspneic prior to admission and is concerned when we discussed his chest x-ray and radiographic presentation whether he might have "lung cancer." He denies hemoptysis but has had pleuritic pain and some chest wall discomfort associated with paroxysms of coughing. OBJECTIVE: VITAL SIGNS: Today blood pressure 119/80, pulse 88 and regular, respiratory rate 22, temperature 36.7, O2 sat 91% on 3 liters. SKIN: Without lesion. HEENT: Atraumatic, normocephalic. PERRLA. LUNGS: Decreased breath sounds at the right base with scattered rhonchi. CARDIAC: Regular rate and rhythm. I do not appreciate a gallop. ABDOMEN: Soft, protuberant. No evidence of hepatosplenomegaly. EXTREMITIES: +1 to +2 pedal edema with chronic stasis changes. NEUROLOGICAL: Intact. No lateralizing signs. No sign of withdrawal. LABORATORY DATA: White count 17,000, H and H 14.5 and 42.1. ABGs on 4 liters yesterday, pH 7.42, pCO2 of 36, pO2 of 65. Venous Doppler study was negative. CTA and abdominal and pelvic CAT scan were noted. The patient appeared to be somewhat constipated even to the point of obstipation. He has had some stool with lessening of abdominal symptoms since admission. CTA showed upper lobe peripheral ground-glass and solid infiltrates appearing inflammatory in nature. Cannot rule out a cryptogenic organizing pneumonia or other etiology with followup suggested. Small right pleural effusion with basilar atelectasis noted. Blood cultures have been negative. OVERALL ASSESSMENT AND PLAN: A 54-year-old with chronic obstructive pulmonary disease, acute and chronic ethanol abuse, possible aspiration with atypical multifocal pneumonitis. The opacities do look peripheral in the upper lung zone in a location for the most part and it is possible he could have acute eosinophilic pneumonia, but suspect we are dealing with either an aspiration mechanism or asymmetric pulmonary edema. The patient clearly is improving and would mobilize and convert to oral antibiotics within 24-48 hours. The patient will require followup as an outpatient and would convert to a prescription of Augmentin 875 mg p.o. b.i.d. for 10 days and we will be happy to see him in followup with followup either chest x-ray or CT scan of the chest in 4-6 weeks. Smoking cessation has been strongly encouraged.
--- NOTE | 2019-07-23 14:27 | Hospitalist Progress Note ---
Date of Service July 23, 2019 Assessment & Plan (1) Pneumonia: Admitted with increasing shortness of breath with cough for some time Noted to have biapical infiltration on CAT scan Suspected to be due to aspiration Has been on intravenous Zosyn and doxycycline Appreciate pulmonary input and recommendation Clinically much better today We will have speech therapy to rule out any aspiration (2) Abdominal pain: Has had nonspecific abdominal pain Likely secondary to constipation As bilateral inguinal hernia with fat herniation , no intestinal herniation and no obstruction (3) Alcoholism /alcohol abuse: History of alcoholism Has signs of withdrawal with tremors involving the bilateral knee out distressed hands Clinically denies any palpitation and does not have any significant tachycardia Has been on gabapentin protocol Clinically improving (4) Depression: Continue current medication (5) Obesity: He is morbidly obese Advised to follow his diet to reduce weight (6) Dyslipidemia: Continue statin Tobacco use disorder Advised to quit We will put nicotine patch CODE STATUS Full Subjective 07/23 The patient was seen and examined in presence of the He is morbidly obese with hyperlipidemia, depression, tobacco use disorder, impaired glucose tolerance and alcohol abuse presented with increasing shortness of breath and abdominal discomfort for some time Noted to have bilateral upper lobe infiltration Has been feeling a lot better Still complains shortness of breath and minimal abdominal pain but no other acute symptoms Review of Systems Review of Systems: All systems reviewed and are unremarkable except as noted below Constitutional: + body aches, + weakness and + anorexia Respiratory: + cough and + dyspnea Gastrointestinal: + abdominal pain and + bloating Physical Exam Physical Exam: Sitting on the age of the bed with some shortness of breath Constitutional: + acute distress (Minimal abdominal pain and shortness of breath) and + ill appearing Eyes: PERRL, conjunctivae normal, anicteric sclerae ENMT: external ear and nose normal, oropharynx normal Neck: trachea midline, no thyromegaly Respiratory: + respiratory distress and + uses accessory muscles Auscultation: + diminished lung sounds, + crackles (Upper lung pichardo) and + wheezes Cardiovascular: Rate/Rhythm: regular rate and regular rhythm Gastrointestinal (Abdomen): Inspection/Auscultation: + abdomen distended Percussion/Palpation: + abdomen tender (Mildly tender lower quadrants, no guarding and/or rigidity) and abdomen soft Neurologic: moves all extremities; no focal motor deficits Psychiatric: A+Ox3, euthymic affect Lymphatic: no cervical or axillary lymphadenopathy Results & Data Vital Signs (Past 12 Hours) Vital Signs Temp Pulse Resp BP Pulse Ox 07/23/19 13:02 92 07/23/19 11:13 36.5 C 80 24 128/92 95 07/23/19 11:10 81 18 95 07/23/19 09:22 88 119/80 07/23/19 08:00 36.7 C 94 H 22 130/91 91 07/23/19 07:13 36.8 C 80 22 107/71 95 07/23/19 07:12 80 20 94 07/23/19 03:27 82 22 96 07/23/19 02:50 36.7 C 80 24 120/84 95 Laboratory Results Short CBC 07/23/19 Range/Units 05:25 WBC 17.71 H (4.8-10.8) K/uL Hgb 14.5 (14.0-18.0) g/dL Hct 42.1 (42-52) % Plt Count 223 (130-400) K/uL BMP 07/23/19 07/23/19 05:25 05:25 Sodium 137 138 Potassium 3.9 4.0 Chloride 106 105 Carbon Dioxide 26 26 BUN 17 17 Creatinine 0.69 0.67 Glucose 131 H 130 H Calcium 9.1 8.8 Liver Function 07/23/19 Range/Units 05:25 Total Bilirubin 0.5 (0.2-1) mg/dl Direct Bilirubin 0.1 (0-0.2) mg/dl AST 19 (15-37) U/L ALT 52 (12-78) U/L Alkaline Phosphatase 80 (45-117) U/L Albumin 2.6 L (3.4-5.0) gm/dl Medications Administered Current Inpatient Medications Acetaminophen (Tylenol) 650 mg PO Q4H PRN PRN Reason: Pain or Fever Stop: 08/21/19 05:17 Last Admin: 07/23/19 07:17 Dose: 650 mg Documented by: Atorvastatin Calcium (Lipitor) 10 mg PO QAM [facility] Stop: 08/21/19 08:59 Last Admin: 07/23/19 07:19 Dose: 10 mg Documented by: Clonidine HCl (Catapres) 0.1 mg PO BID [facility] Stop: 08/21/19 10:14 Last Admin: 07/23/19 09:23 Dose: 0.1 mg Documented by: Cyclobenzaprine HCl (Flexeril) 10 mg PO TID PRN PRN Reason: muscle spasm Stop: 08/21/19 05:17 Last Admin: 07/23/19 07:20 Dose: 10 mg Documented by: Fluoxetine HCl (Prozac) 20 mg PO QAM [facility] Stop: 08/21/19 08:59 Last Admin: 07/23/19 07:19 Dose: 20 mg Documented by: Fluoxetine HCl (Prozac) 40 mg PO DAILY [facility] Stop: 08/21/19 08:59 Last Admin: 07/23/19 07:19 Dose: 40 mg Documented by: Gabapentin (Neurontin) 600 mg PO Q24H [facility] Stop: 07/25/19 18:01 Gabapentin (Neurontin) 600 mg PO Q8H [facility] Stop: 07/23/19 18:01 Last Admin: 07/23/19 10:09 Dose: 600 mg Documented by: Gabapentin (Neurontin) 600 mg PO Q12H [facility] Stop: 07/24/19 18:01 Heparin Sodium (Porcine) (Heparin Sodium (Porcine)) 5,000 units SQ Q8 [facility] Stop: 08/21/19 13:59 Last Admin: 07/23/19 05:52 Dose: 5,000 units Documented by: Doxycycline Hyclate 100 mg/ (Dextrose) 110 mls @ 50 mls/hr IV Q12H [facility] Stop: 07/29/19 13:59 Last Admin: 07/23/19 12:54 Dose: 50 mls/hr Documented by: Folic Acid 1 mg/ Syringe 10 mls @ 5 [facility] [place] Stop: 08/22/19 08:59 Last Admin: 07/23/19 08:22 Dose: 5 mls/min Documented by: Lorazepam (Ativan) 1.5 mg in 3 mls @ 3 mls/min IV Q2H PRN PRN Reason: Alcohol Withdrawal Stop: 08/21/19 05:17 Last Admin: 07/22/19 12:20 Dose: 3 mls/min Documented by: Thiamine HCl 100 mg/ Syringe 10 mls @ 2 mls/min IV QAM [facility] Stop: 08/22/19 08:59 Last Admin: 07/23/19 08:22 Dose: 2 mls/min Documented by: Piperacillin Sod/Tazobactam (Sod 4.5 gm/ Dextrose) 120 mls @ 30 mls/hr IV Q8H [facility]; Protocol Stop: 07/29/19 21:59 Last Infusion: 07/23/19 10:09 Dose: Infused Documented by: Ipratropium Caldwell (Atrovent 0.02% 0.5mg/2.5ml) 0.5 mg INH Q4H PRN PRN Reason: Shortness Of Breath/Wheezing Stop: 08/21/19 05:17 Levalbuterol HCl (Xopenex 1.25mg/3ml Neb) 1.25 mg INH Q4R [facility] Stop: 08/21/19 11:23 Last Admin: 07/23/19 11:09 Dose: 1.25 mg Documented by: Miscellaneous Information (Consult) 1 ea N/A UD PRN PRN Reason: Consult Stop: 08/21/19 16:00 Multivitamins/Minerals (Multivitamin W/ Minerals Tab) 1 tab PO QAM [facility] Stop: 08/21/19 08:59 Last Admin: 07/23/19 07:19 Dose: 1 tab Documented by: Nitroglycerin (Nitrostat) 0.4 mg SL UD PRN PRN Reason: Chest Pain Stop: 08/21/19 05:17 Ondansetron HCl (Zofran) 4 mg IV Q6H PRN PRN Reason: Nausea Stop: 08/21/19 05:17
--- NOTE | 2019-07-23 15:05 | Hospitalist Consultation ---
Date of Consultation July 23, 2019 History of Present Illness Attending Physician: Chris Gomez MD History of Present Illness .hpi pt arrived via [email or web address] [] Allergies Allergy/AdvReac Type Severity Reaction Status Date / Time No Known Allergies Allergy Unknown Unverified 07/22/19 00:10 Home Medications Home Medications Medication Instructions Recorded Confirmed Type atorvastatin 10 mg PO QAM 07/18/19 07/22/19 History cyclobenzaprine 10 mg PO TID PRN #30 tab 07/18/19 07/22/19 Rx fluoxetine 20 mg PO QAM 07/18/19 07/22/19 History Prozac 40 mg PO DAILY 07/22/19 07/22/19 History ibuprofen 600 mg PO Q6H PRN 07/22/19 07/22/19 History prednisone 10 mg PO DAILY 07/22/19 07/22/19 History Patient History Medical History Depression (Chronic) Diverticulosis (Chronic) Diverticulitis (Resolved) Dyslipidemia (Chronic) Obesity (Chronic) Surgical History No significant past surgical history (Chronic) Social History Preferred Language: Yakut Communication Ability: Unable Chemical Packager Required: No Beliefs That Will Affect Care: None Current Living Situation: Spouse Current Living Situation Comment: trailer Other Information That Helps Us Care for You: No Feels Safe at Home: Yes Safety Concerns: Feels Safe At This Time Smoking Status: Current every day smoker Tobacco Type: cigarettes ; Cigarettes Per Day: 20 ; Do You Dip or Chew Tobacco: No ; Second Hand Exposure: Yes ; Tobacco Cessation Education Requested by Patient: Yes Hx Alcohol Use: No Review of Systems Review of Systems: All systems reviewed & are unremarkable except as noted in HPI & below .pe Constitutional: no fever, no chills, no fatigue, no weakness, no anorexia, no weight loss and no weight gain Cardiovascular: + chest pain with activity, + dyspnea on exertion, + orthopnea, + paroxysmal nocturnal dyspnea and + edema; no palpitations and no syncope Genitourinary: + hematuria; no genital pain and no testicle pain Results & Data Vital Signs (Past 12 Hours) Vital Signs Temp Pulse Resp BP Pulse Ox 07/23/19 13:02 92 07/23/19 11:13 36.5 C 80 24 128/92 95 07/23/19 11:10 81 18 95 07/23/19 09:22 88 119/80 07/23/19 08:00 36.7 C 94 H 22 130/91 91 07/23/19 07:13 36.8 C 80 22 107/71 95 07/23/19 07:12 80 20 94 07/23/19 03:27 82 22 96
[2019-07-23] MEDS ORDERED: methylPREDNISolone 125 MG/2 ML VIAL IV STA (15:07)
--- NOTE | 2019-07-23 15:46 | XRay Report ---
XR chest 1V portable CLINICAL HISTORY: increased dyspnea COMPARISON STUDY: Chest CT July 22, 2019. FINDINGS: Mild cardiomegaly is noted. A small right pleural effusion is present. There is no pneumoth orax. Interstitial thickening has mildly increased. Mild bilateral opacities are present. IMPRESSION: 1. Interval increase in interstitial thickening which favors pulmonary edema. 2. Increase in a small right pleural effusion. 3. Mild bilateral opacities which may reflect atelectasis or consolidation. Electronically signed by: Tae Davis M.D. 07/23/2019 3:45 PM
[2019-07-23] MEDS ORDERED: MAGNESIUM HYDROXIDE SUSP 30 ML UDC PO ONE (15:59)
[2019-07-23] MEDS ORDERED: methylPREDNISolone 60 MG in SYRINGE 0 ML IV ONE (16:00)
[2019-07-23] MEDS: NICOTINE 21 MG/24 HR TDSY TD SCH (16:03)
[2019-07-23] MEDS: PSYLLIUM 58.6% POWDER PACKET PO SCH (17:24)
[2019-07-23] MEDS: methylPREDNISolone 60 MG in SYRINGE 0 ML IV SCH (23:42)
[2019-07-24] MEDS: DOXYCYCLINE HYCLATE 100 MG in DEXTROSE 5% 100 ML IV SCH ×2 (02:14→12:02)
[2019-07-24] MEDS: LEVALBUTEROL HCL 1.25 MG/3 ML NEB INH SCH ×6 (03:32→23:08)
[2019-07-24] MEDS: HEPARIN SOD 5,000 UNIT/0.5 ML VIAL SQ SCH ×3 (06:01→21:09)
[2019-07-24] MEDS: PIPERACILLIN/TAZOBACTAM 4.5 GM in DEXTROSE 5% 100 ML IV SCH ×3 (06:04→21:09)
[2019-07-24] MEDS: GABAPENTIN 600 MG TAB PO SCH ×2 (06:05→17:08)
[2019-07-24] MEDS: ATORVASTATIN 10 MG TAB PO SCH (07:23)
[2019-07-24] MEDS: THIAMINE HCL 100 MG in SYRINGE 9 ML IV SCH (07:23)
[2019-07-24] MEDS: methylPREDNISolone 60 MG in SYRINGE 0 ML IV SCH (07:23)
[2019-07-24] MEDS: cloNIDine HCl 0.1 MG TAB PO SCH ×2 (07:24→21:09)
[2019-07-24] MEDS: FOLIC ACID 1 MG in SYRINGE 9.8 ML IV SCH (07:24)
[2019-07-24] MEDS: FLUOXETINE HCL 20 MG CAP PO SCH ×2 (07:24)
[2019-07-24] MEDS: NICOTINE 21 MG/24 HR TDSY TD SCH (07:25)
[2019-07-24] MEDS: PSYLLIUM 58.6% POWDER PACKET PO SCH (07:25)
[2019-07-24] MEDS: CEROVITE ADV FORMULA TAB PO SCH (07:25)
[2019-07-24 08:40] LABS: Basophils # (auto) 0.01 K/uL (0-0.2); Basophils % (auto) 0.1 %; Hematocrit (blood only) 44.3 % (42-52); Hemoglobin 15.3 g/dL (14.0-18.0); Immature Granulocytes # (auto) 0.31 K/uL (0.00-0.02); Immature Granulocytes % (auto) 1.6 %; Lymphocytes # (auto) 1.52 K/uL (1.2-3.4); Lymphocytes % (auto) 8.1 %; Mean Corpuscular Hgb Conc 34.5 g/dL (32-36); Mean Corpuscular Volume 93.7 fL (80-100); Mean Platelet Volume 9.7 fL (7.4-10.4); Monocytes # (auto) 0.82 K/uL (0.11-0.59); Monocytes % (auto) 4.4 %; Neutrophils # (auto) 16.17 K/uL (1.4-6.5); Neutrophils % (auto) 85.8 %; Platelet Count 245 K/uL (130-400); RDW Coefficient of Variation 13.8 % (11.5-14.5); RDW Standard Deviation 47.5 fL (36.4-46.3); Red Blood Count 4.73 M/uL (4.7-6.1); White Blood Count 18.83 K/uL (4.8-10.8)
[2019-07-24 09:14] LABS: BUN Creatinine Ratio 23.2 (10-20); Calcium 9.4 mg/dl (8.5-10.1); Creatinine Clr Calc Pharmacy 133.2 ml/min; Est GFR (African American) 111.8; Est GFR (Non-African American) 96.5; Potassium 4.1 mmol/L (3.5-5.1)
--- NOTE | 2019-07-24 14:39 | Progress Note ---
DATE: 07/24/2019 Chart reviewed, patient examined. SUBJECTIVE: The patient is sitting up in bed with family members. No sign of respiratory distress, but he does admit to some dyspnea with exertion and mild cough. OBJECTIVE: CURRENT VITAL SIGNS: Blood pressure 155/90, pulse 95 and regular, respiratory rate 20, temperature 36.5, O2 sat 97% on room air. SKIN: Without lesion. HEENT: Atraumatic, normocephalic. PERRLA. LUNGS: Some fine rales at the bases; otherwise, distant P and A. CARDIAC: Regular rate and rhythm. I do not appreciate any gallop. ABDOMEN: Soft, protuberant. EXTREMITIES: Trace to +1 pitting edema. No clubbing or peripheral cyanosis. NEUROLOGIC: Intact. No lateralizing signs. DIAGNOSTIC DATA: Followup chest x-ray yesterday when compared to CT scan on admission shows slight increase in interstitial thickening, which favors pulmonary edema and a small right pleural effusion with bilateral opacities. White count 18,000. OVERALL ASSESSMENT: A 54-year-old presents with acute on chronic ethanol intoxication, possible aspiration, has significantly recovered since his admission. I believe there is an element of fluid overload and I would diurese patient and maintain on oral diuretic therapy. I will order a transthoracic echocardiogram to make sure we are not dealing with patient with alcoholic cardiomyopathy and I do believe the bilateral lung opacities are really resolving pulmonary edema represent mucus plugging with atelectasis. The patient is very anxious to go home and I think he could be safely discharged tomorrow with followup in our clinic.
--- NOTE | 2019-07-24 14:50 | Hospitalist Progress Note ---
Date of Service July 24, 2019 Assessment & Plan (1) Pneumonia: Pneumonia: likely secondary to Aspiration CT chest: 1. Allowing for suboptimal image quality, no evidence of pulmonary embolus. 2. Upper lobe peripheral groundglass and solid infiltrates. The distribution of these inflammatory changes suggests an airway etiology. Differential considerations include eosinophilic pneumonia, eosinophilic granulomatosis with polyangiitis, cryptogenic organizing pneumonia, or an atypical infectious pneumonia among other etiologies. Follow-up chest CT in 3 months after treatment recommended. 3. Small right pleural effusion with right basilar atelectasis. improving On intravenous Zosyn and doxycycline--> transition to Augmentin tomorrow wean off oxygen Infrastructure Manager on board, appreciate Dr. Wilson's recommendations Hypoxia secondary to Pneumonia r/o CHF echo ordered, pending Lasix 40mg po BID started monitor Abdominal pain Has had nonspecific abdominal pain Likely secondary to constipation (+) bilateral inguinal hernia with fat herniation , no intestinal herniation and no obstruction resolved Alcoholism /alcohol abuse on gabapentin protocol no signs of overt withdrawal today Depression Continue current medication Obesity counseled on weight loss Dyslipidemia Continue statin Tobacco use disorder counseled on cessation CODE STATUS Full Disposition anticipate d/c home when medically stable Subjective ff up for pneumonia, hypoxia seen resting in bed, comfortable states he feels improved compared to few days ago less dyspnea, cough no chest pain denies tremors, hallucinations, sweats denies other symptoms Review of Systems Review of Systems: All systems reviewed & are unremarkable except as noted in HPI & below Physical Exam Physical Exam: General- oriented x 3, not in distress, speaks in sentences with no effort or accessory muscle use Head- atraumatic Eyes- PERRL, EOMI, anicteric ENT- oropharynx clear Neck- supple, no JVD, no adenopathy, no thyromegaly; carotids +2/2, no bruits appreciated Lungs- mild rhonchi at the right base, no wheezes Heart- normal rate, regular rhythm; no murmur, no gallop, no rub appreciated Abdomen- normal bowel sounds, nondistended, soft, nontender, no masses or hepatosplenomegaly Extremities- mild lower leg edema, no calf tenderness; peripheral pulses intact Neuro- alert, oriented x 3; CN 2-12 grossly intact; motor 5/5 bilaterally;sensation 100% on all extremities; no other gross focal neurologic deficits Skin- warm & dry Results & Data Vital Signs (Past 12 Hours) Vital Signs Temp Pulse Resp BP Pulse Ox 07/24/19 11:49 36.5 C 95 H 20 155/90 H 97 07/24/19 11:07 87 16 92 07/24/19 07:22 36.6 C 80 22 133/80 93 07/24/19 07:04 76 16 95 07/24/19 04:22 36.6 C 87 19 124/81 92 07/24/19 03:34 63 16 95
[2019-07-24] MEDS ORDERED: PERFLUTREN LIPID MICROSPHERE (DEFINITY) IV ONE (14:51)
[2019-07-24] MEDS: FUROSEMIDE 40 MG TAB PO SCH (17:07)
[2019-07-25] MEDS: DOXYCYCLINE HYCLATE 100 MG in DEXTROSE 5% 100 ML IV SCH (01:48)
[2019-07-25] MEDS: LEVALBUTEROL HCL 1.25 MG/3 ML NEB INH SCH ×6 (02:33→22:59)
[2019-07-25] MEDS: HEPARIN SOD 5,000 UNIT/0.5 ML VIAL SQ SCH ×3 (05:18→21:15)
[2019-07-25 06:07] LABS: Hematocrit (blood only) 43.7 % (42-52); Hemoglobin 14.9 g/dL (14.0-18.0); Mean Corpuscular Hgb Conc 34.1 g/dL (32-36); Mean Platelet Volume 9.9 fL (7.4-10.4); Platelet Count 270 K/uL (130-400); RDW Coefficient of Variation 14.1 % (11.5-14.5); RDW Standard Deviation 48.5 fL (36.4-46.3); White Blood Count 22.11 K/uL (4.8-10.8)
[2019-07-25 08:14] LABS: Codeine Urine NEGATIVE NG/ML (CUTOFF=50); Hydrocodone Urine NEGATIVE NG/ML (CUTOFF=50); Hydromor Urine NEGATIVE NG/ML (CUTOFF=50); Marijuana Quant, GCMS Urine 47 NG/ML (CUTOFF=5); Morphine Urine 2440 NG/ML (CUTOFF=50); Norhydrocodone Conf Ur NEGATIVE NG/ML (CUTOFF=50); Noroxycodone Urine 2160 NG/ML (CUTOFF=50); Oxycodone Urine 1210 NG/ML (CUTOFF=50); Oxymorph Urine 168 NG/ML (CUTOFF=50)
[2019-07-25] MEDS: NICOTINE 21 MG/24 HR TDSY TD SCH (08:26)
[2019-07-25] MEDS: AMOXICILLIN/CLAVULANATE 875 MG TAB PO SCH ×2 (08:27→16:45)
[2019-07-25] MEDS: FLUOXETINE HCL 20 MG CAP PO SCH ×2 (08:27→08:29)
[2019-07-25] MEDS: FOLIC ACID 1 MG TAB PO SCH (08:28)
[2019-07-25] MEDS: cloNIDine HCl 0.1 MG TAB PO SCH ×2 (08:28→21:14)
[2019-07-25] MEDS: THIAMINE HCL 50 MG TABLET PO SCH (08:28)
[2019-07-25] MEDS: FUROSEMIDE 40 MG TAB PO SCH (08:28)
[2019-07-25] MEDS: CEROVITE ADV FORMULA TAB PO SCH (08:28)
[2019-07-25] MEDS: ATORVASTATIN 10 MG TAB PO SCH (08:29)
[2019-07-25] MEDS: PSYLLIUM 58.6% POWDER PACKET PO SCH (08:29)
--- NOTE | 2019-07-25 09:45 | Pulmonology Progress Note ---
Date of Service July 25, 2019 [age] year old white male with strong smoking and alcohol history admitted hypoxemic and with acute alcohol intoxication is markedly improved from admission. He still claims to be dyspneic with modest exertion and has a nonproductive cough that is abating. He was weaned down from high-dose steroid therapy yesterday and that may have contributed to his symptoms today slight increase in dyspnea with exertion. Transthoracic echocardiogram showed normal LVEF but no overt signs of pulmonary hypertension or valvular heart disease. Chest x-ray continued to show interstitial edema along with these opacities more evenly distributed in the upper lobes bilaterally which may simply be atelectasis from mucus plugging. Lengthy discussion with the patient today about both his smoking addiction and chronic ethanol abuse. He appears to have some insight into the latter and given his history I reaffirmed to him that I did not think there was a 'safe level of drinking' in response to a question he asked me. Assessment & Plan (1) Chronic diastolic CHF (congestive heart failure), NYHA class 2: [age] year showed moderate to morbidly obese white male with both acute and chronic ethanol abuse and longstanding smoking history admitted hypoxemic in moderate respiratory distress with acute alcohol intoxication. Lengthy discussion with patient concerning his respiratory status. I do believe there was an element of interstitial edema and fluid overload from chronic diastolic heart failure. I have placed him on diuretics and will add potassium supplementation. Will decrease his steroid dosage and convert to oral antibiotics and repeat chest x-ray tomorrow along with a two-step see if he is ready for discharge. Review of Systems Constitutional: no problem reported Eyes: no problem reported Ear, Nose, Mouth, Throat: no problem reported Respiratory: + dyspnea and + pain on inspiration (Right-sided pleuritic discomfort) Cardiovascular: no problem reported Gastrointestinal: no problem reported Genitourinary: no problem reported Musculoskeletal: no problem reported Integumentary: no problem reported Neurologic: no problem reported Psychiatric: no problem reported Endocrine: no problem reported Hematologic / Lymphatic: no problem reported Allergy / Immunological: no problem reported Physical Exam Constitutional: well developed and well nourished; no acute distress Eyes: PERRL, conjunctivae normal, anicteric sclerae ENMT: external ear and nose normal, oropharynx normal Neck: trachea midline, no thyromegaly Respiratory: normal respiratory effort Auscultation: + diminished lung sounds (Diminished breath sounds right base with dullness) and + rales (Fine rales heard at the bases with 1 expiratory wheeze right base) Cardiovascular: RRR, no murmur, no edema Palpation: normal PMI; no thrill Gastrointestinal (Abdomen): normal bowel sounds, soft, nontender, no hepatosplenomegaly Musculoskeletal: no cyanosis or clubbing, extremities motor strength 5/5 Gait: normal gait Skin: no rashes, warm and dry Neurologic: PERRL, EOMI, accommodation nl, no face palsy, no dysarthria Psychiatric: A+Ox3, euthymic affect Lymphatic: no cervical or axillary lymphadenopathy Results & Data Vital Signs (Past 12 Hours) Vital Signs Temp Pulse Pulse Resp BP Pulse Ox 07/25/19 07:17 36.7 C 77 19 118/85 95 07/25/19 07:06 76 16 94 07/25/19 04:00 36.7 C 77 19 111/77 92 07/25/19 02:33 69 16 94 07/25/19 00:36 83 07/25/19 00:15 36.6 C 83 19 111/80 93 07/24/19 23:09 82 14 94 PG Care Time/CCT Total # of Minutes Spent Total Time Spent: 40 Total Time Spent with Patient: Total time spent is greater than 50% in coordination of care (as documented) at patient's floor/unit and/or counseling patient:
--- NOTE | 2019-07-25 11:05 | Hospitalist Progress Note ---
Date of Service July 25, 2019 Assessment & Plan (1) Pneumonia: Pneumonia: likely secondary to Aspiration CT chest: 1. Allowing for suboptimal image quality, no evidence of pulmonary embolus. 2. Upper lobe peripheral groundglass and solid infiltrates. The distribution of these inflammatory changes suggests an airway etiology. Differential considerations include eosinophilic pneumonia, eosinophilic granulomatosis with polyangiitis, cryptogenic organizing pneumonia, or an atypical infectious pneumonia among other etiologies. Follow-up chest CT in 3 months after treatment recommended. 3. Small right pleural effusion with right basilar atelectasis. improving On intravenous Zosyn and doxycycline--> transitioned to Augmentin wean off oxygen Compressor Repairer on board, appreciate Dr. Wilson's recommendations Hypoxia secondary to Pneumonia echo ordered: noted Lasix 40mg po BID started reduced to daily monitor Abdominal pain Has had nonspecific abdominal pain Likely secondary to constipation (+) bilateral inguinal hernia with fat herniation , no intestinal herniation and no obstruction resolved Alcoholism /alcohol abuse on gabapentin protocol no signs of overt withdrawal today Depression Continue current medication Obesity counseled on weight loss Dyslipidemia Continue statin Tobacco use disorder counseled on cessation CODE STATUS Full Disposition anticipate d/c home tomorrow when medically stable Subjective ff up for pneumonia seen resting in bed, comfortable states he feels improved compared to yesterday less dyspnea, cough, sputum no chest pain denies other symptoms Review of Systems Review of Systems: All systems reviewed & are unremarkable except as noted in HPI & below Physical Exam Physical Exam: General- oriented x 3, not in distress, speaks in sentences with no effort or accessory muscle use Eyes- anicteric Neck- no JVD Lungs- clear breath sounds bilaterally, no crackles, no wheezing Heart- normal rate, regular rhythm; no murmurs Abdomen- normal bowel sounds, nondistended, soft, nontender Extremities- no pretibial edema, no calf tenderness Neuro- alert, oriented x 3; no gross focal neurologic deficits Skin- warm & dry Results & Data Vital Signs (Past 12 Hours) Vital Signs Temp Pulse Pulse Resp BP Pulse Ox 07/25/19 11:03 83 16 97 07/25/19 07:17 36.7 C 77 19 118/85 95 07/25/19 07:06 76 16 94 07/25/19 04:00 36.7 C 77 19 111/77 92 07/25/19 02:33 69 16 94 07/25/19 00:36 83 07/25/19 00:15 36.6 C 83 19 111/80 93 07/24/19 23:09 82 14 94
[2019-07-25 11:29] LABS: BUN Creatinine Ratio 27.2 (10-20); Calcium 9.2 mg/dl (8.5-10.1); Creatinine Clr Calc Pharmacy 134.3 ml/min; Est GFR (African American) 112.9; Est GFR (Non-African American) 97.4; Potassium 4.5 mmol/L (3.5-5.1)
[2019-07-25] MEDS ORDERED: GABAPENTIN 600 MG TAB PO SCH (18:00)
[2019-07-26] MEDS: CYCLOBENZAPRINE HCL 10 MG TAB PO PRN (01:16)
[2019-07-26] MEDS: ACETAMINOPHEN 325 MG TAB PO PRN (01:16)
[2019-07-26] MEDS: LEVALBUTEROL HCL 1.25 MG/3 ML NEB INH SCH ×6 (03:05→22:38)
[2019-07-26 06:58] LABS: BUN Creatinine Ratio 28.6 (10-20); Calcium 8.6 mg/dl (8.5-10.1); Creatinine Clr Calc Pharmacy 127.8 ml/min; Est GFR (African American) 110.8; Est GFR (Non-African American) 95.6
[2019-07-26] MEDS: HEPARIN SOD 5,000 UNIT/0.5 ML VIAL SQ SCH (07:12)
[2019-07-26] MEDS: AMOXICILLIN/CLAVULANATE 875 MG TAB PO SCH ×2 (07:52→16:35)
[2019-07-26] MEDS: PSYLLIUM 58.6% POWDER PACKET PO SCH (07:52)
[2019-07-26] MEDS: FLUOXETINE HCL 20 MG CAP PO SCH ×2 (07:53→07:54)
[2019-07-26] MEDS: FUROSEMIDE 40 MG TAB PO SCH (07:53)
[2019-07-26] MEDS: ATORVASTATIN 10 MG TAB PO SCH (07:53)
[2019-07-26] MEDS: CEROVITE ADV FORMULA TAB PO SCH (07:54)
[2019-07-26] MEDS: THIAMINE HCL 50 MG TABLET PO SCH (07:54)
[2019-07-26] MEDS: NICOTINE 21 MG/24 HR TDSY TD SCH (07:55)
[2019-07-26] MEDS: FOLIC ACID 1 MG TAB PO SCH (07:55)
[2019-07-26] MEDS: cloNIDine HCl 0.1 MG TAB PO SCH ×2 (07:55→21:09)
[2019-07-26] MEDS: methylPREDNISolone 60 MG in SYRINGE 0 ML IV SCH ×2 (10:05→21:09)
--- NOTE | 2019-07-26 10:23 | XRay Report ---
XR chest 1V portable HISTORY: shortness of breath COMPARISON: Chest 07/23/2019. FINDINGS: No pneumothorax. Low lung volumes. The heart remains enlarged. Increase in size in the smal l to moderate right pleural effusion with right basilar airspace opacities. Mild congestive change culp s slightly improved. Trace left pleural effusion persists. IMPRESSION: 1. Slight improvement in the mild congestive change. 2. Increase in size in the small to moderate right pleural effusion with right basilar densities. Thi s favors atelectasis from the pleural effusion. Electronically signed by: Michael Jones M.D. 07/26/2019 10:22 AM
[2019-07-26] MEDS: IPRATROPIUM BROMIDE NEB SOLN 0.02% 2.5 ML VIAL NEB SCH ×4 (11:06→22:37)
--- NOTE | 2019-07-26 12:17 | Pulmonology Progress Note ---
Date of Service Chart reviewed and patient examined July 26, 2019 Assessment & Plan (1) Chronic diastolic CHF (congestive heart failure), NYHA class 2: (2) Alcoholism /alcohol abuse: (3) Pneumonia: 54-year-old obese white male with chronic obstructive pulmonary disease and longstanding ethanol history presents with acute intoxication possible aspiration and progressive right pleural effusion with interstitial edema and dyspnea. Chest x-ray today clearly shows of progressive right pleural effusion and have a past that is subcu heparin be held and would consider ultrasound and right-sided thoracentesis tomorrow for diagnostic and therapeutic purposes. This was discussed with the patient and he is amenable to proceeding in this fashion. (4) Obesity: (5) Acute right-sided thoracic back pain: (6) Pleural effusion on right: Subjective He has complained of increased right-sided pleuritic discomfort associated with dyspnea and orthopnea and nonproductive cough. He is clearly uncomfortable. 54-year-old obese white male admitted on 07/23/2019 with acute and chronic ethanol intoxication with a longstanding smoking history and diagnosis consistent with COPD/chronic bronchitis with possible aspiration and acute hypoxemic respiratory failure.. Patient was placed on a gabapentin particle given IV Ativan with marked clearing of sensorium. CTA on admission showed upper lobe peripheral ground-glass and solid infiltrates appearing inflammatory nature. The differential diagnosis included eosinophilic pneumonia, possible vasculitis, cryptogenic organizing pneumonia or atypical infectious etiology verses atypical presentation of pulmonary edema. He had a small right pleural effusion with right basilar atelectasis on admission. He did have some pleuritic discomfort in addition to chest wall discomfort. Review of Systems Constitutional: no problem reported Eyes: no problem reported Ear, Nose, Mouth, Throat: no problem reported Respiratory: no problem reported Cardiovascular: no problem reported Gastrointestinal: no problem reported Genitourinary: no problem reported Musculoskeletal: no problem reported Integumentary: no problem reported Neurologic: no problem reported Psychiatric: no problem reported Endocrine: no problem reported Hematologic / Lymphatic: no problem reported Allergy / Immunological: no problem reported Physical Exam Constitutional: well developed and well nourished; no acute distress Eyes: PERRL, conjunctivae normal, anicteric sclerae ENMT: external ear and nose normal, oropharynx normal Neck: trachea midline, no thyromegaly Respiratory: normal respiratory effort Auscultation: lungs clear to auscultation bilaterally and + diminished lung sounds (Decreased breath sounds right base with dullness) Cardiovascular: RRR, no murmur, no edema Palpation: normal PMI; no thrill Gastrointestinal (Abdomen): normal bowel sounds, soft, nontender, no hepatos plenomegaly Musculoskeletal: no cyanosis or clubbing, extremities motor strength 5/5 Gait: normal gait Skin: no rashes, warm and dry Neurologic: PERRL, EOMI, accommodation nl, no face palsy, no dysarthria Psychiatric: A+Ox3, euthymic affect Lymphatic: no cervical or axillary lymphadenopathy Results & Data Vital Signs (Past 12 Hours) Vital Signs Temp Pulse Resp BP BP Pulse Ox 07/26/19 11:53 36.7 C 78 18 115/81 90 07/26/19 11:06 65 16 93 07/26/19 07:31 36.8 C 82 20 142/92 H 92 07/26/19 06:59 74 16 95 07/26/19 03:26 36.7 C 72 16 112/70 92 07/26/19 03:05 75 16 93 PG Care Time/CCT Total # of Minutes Spent Total Time Spent with Patient: Total time spent is greater than 50% in coordination of care (as documented) at patient's floor/unit and/or counseling patient:
--- NOTE | 2019-07-26 15:29 | Hospitalist Progress Note ---
Date of Service July 26, 2019 Assessment & Plan (1) Pneumonia: Pneumonia: likely secondary to Aspiration CT chest: 1. Allowing for suboptimal image quality, no evidence of pulmonary embolus. 2. Upper lobe peripheral groundglass and solid infiltrates. The distribution of these inflammatory changes suggests an airway etiology. Differential considerations include eosinophilic pneumonia, eosinophilic granulomatosis with polyangiitis, cryptogenic organizing pneumonia, or an atypical infectious pneumonia among other etiologies. Follow-up chest CT in 3 months after treatment recommended. 3. Small right pleural effusion with right basilar atelectasis. increasing dyspnea today repeat CXR: right sided pleural effusion Chest US ordered, possible Thoracentesis tomorrow continue Lasix 40mg po daily On intravenous Zosyn and doxycycline--> transitioned to Augmentin Pile Driver Operator Helper on board, appreciate Dr. Wilson's recommendations Hypoxia secondary to Pneumonia echo ordered: noted monitor Abdominal pain Has had nonspecific abdominal pain Likely secondary to constipation (+) bilateral inguinal hernia with fat herniation , no intestinal herniation and no obstruction resolved Alcoholism /alcohol abuse on gabapentin protocol no signs of overt withdrawal today Depression Continue current medication Obesity counseled on weight loss Dyslipidemia Continue statin Tobacco use disorder counseled on cessation CODE STATUS Full Disposition pending Subjective ff up for pneumonia seen resting in chair states he feels dyspneic again today less cough, sputum has right sided posterolateral chest discomfort with deep inspiration no fever/chills denies other symptoms Review of Systems Review of Systems: All systems reviewed & are unremarkable except as noted in HPI & below Physical Exam Physical Exam: General- oriented x 3, not in distress, speaks in sentences with no effort or accessory muscle use Eyes- anicteric Neck- no JVD Lungs- decreased breath sounds right mid-base, clear on the left no wheezing Heart- normal rate, regular rhythm; no murmurs Abdomen- normal bowel sounds, nondistended, soft, nontender Extremities- trace pretibial edema, no calf tenderness Neuro- alert, oriented x 3; no gross focal neurologic deficits Skin- warm & dry Results & Data Vital Signs (Past 12 Hours) Vital Signs Temp Pulse Resp BP BP Pulse Ox 07/26/19 15:15 82 18 91 07/26/19 11:53 36.7 C 78 18 115/81 90 07/26/19 11:06 65 16 93 07/26/19 07:31 36.8 C 82 20 142/92 H 92 07/26/19 06:59 74 16 95 07/26/19 03:26 36.7 C 72 16 112/70 92 Laboratory Results Laboratory Results - last 24 hr 07/26/19 07/26/19 05:46 07:04 Sodium 135 L Potassium 4.1 Chloride 102 Carbon Dioxide 28 Anion Gap 5.0 BUN 25 H Creatinine 0.89 Est Cr Clr Drug Dosing 127.8 Est GFR ( Amer) 110.8 Est GFR (Non-Af Amer) 95.6 BUN/Creatinine Ratio 28.6 H Glucose 85 Calcium 8.6
[2019-07-27] MEDS: IPRATROPIUM BROMIDE NEB SOLN 0.02% 2.5 ML VIAL NEB SCH ×6 (02:24→22:43)
[2019-07-27] MEDS: LEVALBUTEROL HCL 1.25 MG/3 ML NEB INH SCH ×4 (02:33→15:49)
--- NOTE | 2019-07-27 07:32 | Ultrasound Report ---
US effusion-chest/mediastinum CLINICAL HISTORY: 54 years-old Male presenting with Progressive R pleural effusion/please kiran. TECHNIQUE: Real-time grayscale ultrasound imaging of the chest was performed for a focused evaluation at the site of clinical concern. Color Doppler ultrasound imaging was also performed. COMPARISON: Chest x-ray from 07/26/2019 and CTA chest from 07/22/2019. FINDINGS: Right pleural effusion with septations suspected. The measurements is likely exaggerated as there is inclusion of lung tissue, however, the calculated volume is 847 mL. Left pleural effusion also present with suspected septations. Calculated volume of 547 mL. IMPRESSION: 1. Bilateral pleural effusions, which appear complex with septations. Measurement of the right pleur al effusion may be exaggerated as there is inclusion of lung tissue. Electronically signed by: Yemi Al M.D. 07/27/2019 7:30 AM
[2019-07-27] MEDS: methylPREDNISolone 60 MG in SYRINGE 0 ML IV SCH ×2 (08:12→22:14)
[2019-07-27] MEDS: FUROSEMIDE 40 MG TAB PO SCH (08:12)
[2019-07-27] MEDS: FOLIC ACID 1 MG TAB PO SCH (08:12)
[2019-07-27] MEDS: ATORVASTATIN 10 MG TAB PO SCH (08:12)
[2019-07-27] MEDS: CYCLOBENZAPRINE HCL 10 MG TAB PO PRN (08:12)
[2019-07-27] MEDS: cloNIDine HCl 0.1 MG TAB PO SCH ×2 (08:12→22:13)
[2019-07-27] MEDS: THIAMINE HCL 50 MG TABLET PO SCH (08:12)
[2019-07-27] MEDS: CEROVITE ADV FORMULA TAB PO SCH (08:12)
[2019-07-27] MEDS: FLUOXETINE HCL 20 MG CAP PO SCH ×2 (08:13→08:15)
[2019-07-27] MEDS: AMOXICILLIN/CLAVULANATE 875 MG TAB PO SCH ×2 (08:13→16:19)
[2019-07-27] MEDS: PSYLLIUM 58.6% POWDER PACKET PO SCH (08:14)
[2019-07-27] MEDS: NICOTINE 21 MG/24 HR TDSY TD SCH (08:14)
[2019-07-27 08:22] LABS: BUN Creatinine Ratio 26.1 (10-20); Calcium 9.3 mg/dl (8.5-10.1); Creatinine Clr Calc Pharmacy 144.7 ml/min; Est GFR (Non-African American) 100.9; Potassium 5.3 mmol/L (3.5-5.1)
--- NOTE | 2019-07-27 13:13 | Pulmonology Progress Note ---
Date of Service July 27, 2019 Assessment & Plan (1) Pleural effusion on right: Impression: 54-year-old male with extensive history of alcohol abuse and obesity presenting with rapidly progressive right-sided pleural effusion. Given his leukocytosis, I am concerned about a possible parapneumonic process. Recommendations: 1. Patient will undergo catheter directed ultrasound-guided thoracentesis on the right. Fluid will be sent for routine studies. If significant septations are identified or were unable to completely evacuate the fluid, consideration for placement of a pleural drain and intrapleural fibrinolytic's may be appropriate. Alternatively, the patient may be appropriate for video-assisted thoracoscopic decortication. 2. Possible community-acquired pneumonia/aspiration pneumonia: Day #2 Augmentin. Continue antibiotics in light of his elevated white blood cell co unt. Additional antibiotic will depend on culture results, response to therapy, and patient's clinical course. 3. Morbid obesity, weight loss recommended. 4. (2) Chronic diastolic CHF (congestive heart failure), NYHA class 2: (3) Pneumonia: (4) Acute right-sided thoracic back pain: Subjective Patient feels that his breathing is somewhat worse. He has increasing labored breathing when supine. He is not coughing or expectorating phlegm. He denies fevers chills or night sweats. He does complain of some chest tightness on the right side. His medical history and review of systems is unchanged from prior. Review of Systems Review of Systems: Unchanged from prior Physical Exam Physical Exam: Obese male, limits sensitivity of exam Constitutional: WD/WN, vitals as above Neck: trachea midline, no thyromegaly Respiratory: Breath sounds diminished at the right lung base with dullness to percussion. Cardiovascular: RRR, no murmur, no edema Extremities: + edema Gastrointestinal (Abdomen): normal bowel sounds, soft, nontender, no hepatosplenomegaly Neurologic: Nonfocal Results & Data Vital Signs (Past 12 Hours) Vital Signs Temp Pulse Resp BP BP Pulse Ox 07/27/19 11:56 36.1 C L 82 18 122/87 90 07/27/19 10:45 72 16 92 07/27/19 07:25 36.5 C 72 20 131/93 96 07/27/19 07:12 70 16 90 07/27/19 04:11 36.9 C 82 16 129/80 92 07/27/19 02:33 79 16 93 Laboratory Results 07/25/19 05:13 07/27/19 07:05 Microbiology 07/22/19 06:23 Blood Aerobic Blood Culture - Final No growth in Aerobic bottle after 5 days. 07/22/19 06:23 Blood Anaerobic Blood Culture - Final No growth in Anaerobic bottle after 5 days. 07/22/19 06:00 Blood Aerobic Blood Culture - Final No growth in Aerobic bottle after 5 days. 07/22/19 06:00 Blood Anaerobic Blood Culture - Final Diagnostic Findings Imaging independently reviewed. XR chest 1V portable HISTORY: shortness of breath COMPARISON: Chest 07/23/2019. FINDINGS: No pneumothorax. Low lung volumes. The heart remains enlarged. Increase in size in the small to moderate right pleural effusion with right basilar airspace opacities. Mild congestive change has slightly improved. Trace left pleural effusion persists. IMPRESSION: 1. Slight improvement in the mild congestive change. 2. Increase in size in the small to moderate right pleural effusion with right basilar densities. This favors atelectasis from the pleural effusion. PG Care Time/CCT Total # of Minutes Spent Total Time Spent with Patient: Total time spent is greater than 50% in coordination of care (as documented) at patient's floor/unit and/or counseling patient:
--- NOTE | 2019-07-27 13:15 | Procedure Note ---
Procedure Note Date of Service July 27, 2019 Procedure: Diagnostic therapeutic ultrasound-guided catheter thoracentesis on the right Deli Manager: Dr. Miko Lynch Indication: Pleural effusion Consent: Signed by patient and verified with timeout prior to procedure Anesthesia: 10 mL's 1% lidocaine without epinephrine local. Procedure: Consent was verified and timeout performed. Appropriate imaging studies were reviewed prior to the procedure. Patient was placed in a seated position and limited thoracic ultrasound was performed of the bilateral chest. See separate imaging. Minimal fluid was identified on the left. The right side showed a moderate pleural effusion with significant septations and loculations noted. Site appropriate for thoracentesis was selected. The skin was prepped and draped in normal sterile fashion. Lidocaine was used for local analgesia. Fluid was aspirated via the finder needle. A small skin nima was made with the scalpel and the catheter over the needle apparatus was advanced over the rib into the pleural space. Using the syringe one-way valve system, a total of 50 mL's of turbid appearing fluid was removed. Procedure was terminated due to inability to remove any additional fluid despite manipulation of the catheter.. The catheter was removed and observed to be intact. A sterile dressing was applied. Post procedure chest x-ray was ordered. Fluid was sent for cell count with differential, Gram stain and culture, LDH, pH, total protein, and glucose. The patient tolerated the procedure well without obvious complication Given the inability to withdraw significant fluid in the septated nature, I presented the patient with the options of placing an indwelling pleural drain and consideration for intrapleural lytics versus proceeding with a video- assisted thoracoscopic decortication and evacuation of the pleural space. After discussion the patient would like to try the indwelling pleural catheter. Please see separate procedure note. Coding CPT Codes Pulmonary/Thoracic - Pulmonary and Thoracic: Thoracentesis w imaging ([id number])
--- NOTE | 2019-07-27 13:20 | Hospitalist Progress Note ---
Date of Service July 27, 2019 Assessment & Plan (1) Pneumonia: Pneumonia: likely secondary to Aspiration CT chest: 1. Allowing for suboptimal image quality, no evidence of pulmonary embolus. 2. Upper lobe peripheral groundglass and solid infiltrates. The distribution of these inflammatory changes suggests an airway etiology. Differential considerations include eosinophilic pneumonia, eosinophilic granulomatosis with polyangiitis, cryptogenic organizing pneumonia, or an atypical infectious pneumonia among other etiologies. Follow-up chest CT in 3 months after treatment recommended. 3. Small right pleural effusion with right basilar atelectasis. repeat CXR: right sided pleural effusion Chest US ordered: Right-sided 850 cc, left side 500 cc continue Lasix 40mg po daily For thoracentesis today On intravenous Zosyn and doxycycline--> transitioned to Augmentin Audiovisual Equipment Operator on board, appreciate Dr. Wilson's recommendations Hypoxia secondary to Pneumonia echo ordered: noted monitor Abdominal pain Has had nonspecific abdominal pain Likely secondary to constipation (+) bilateral inguinal hernia with fat herniation , no intestinal herniation and no obstruction resolved Alcoholism /alcohol abuse on gabapentin protocol no signs of overt withdrawal today Depression Continue current medication Obesity counseled on weight loss Dyslipidemia Continue statin Tobacco use disorder counseled on cessation CODE STATUS Full Disposition pending Subjective Follow-up for shortness of breath, pneumonia, pleural effusion Sensitive in bedside chair, more comfortable compared to yesterday States he feels only slightly improved compared to yesterday Still has dyspnea with minimal exertion Minimal cough, no sputum production Fevers or chills No chest pain Denies other symptoms Review of Systems Review of Systems: All systems reviewed & are unremarkable except as noted in HPI & below Physical Exam Physical Exam: General- oriented x 3, not in distress, speaks in sentences with no effort or accessory muscle use Eyes- anicteric Neck- no JVD Lungs- decreased breath sounds bilateral bases, no crackles no wheeze Heart- normal rate, regular rhythm; no murmurs Abdomen- normal bowel sounds, nondistended, soft, nontender Extremities-minimal lower leg edema, no calf tenderness Neuro- alert, oriented x 3; no gross focal neurologic deficits Skin- warm & dry Results & Data Vital Signs (Past 12 Hours) Vital Signs Temp Pulse Resp BP BP Pulse Ox 07/27/19 11:56 36.1 C L 82 18 122/87 90 07/27/19 10:45 72 16 92 07/27/19 07:25 36.5 C 72 20 131/93 96 07/27/19 07:12 70 16 90 07/27/19 04:11 36.9 C 82 16 129/80 92 07/27/19 02:33 79 16 93
[2019-07-27 13:24] LABS: Appearance Pleural Fluid CLOUDY; Color Pleural Fluid AMBER; Mononuclear WBC Pleural 15.5 %; Polynuclear WBC Pleural 84.5 %; RBC Pleural Fluid (A) 19000 /uL; Source Pleural Fluid RIGHT LUNG; WBC Pleural Fluid (A) 290 /uL
[2019-07-27 13:37] LABS: LDH Pleural Fluid 532 U/L; Total Protein Pleural Fluid 4.8 g/dl
--- NOTE | 2019-07-27 16:18 | Procedure Note ---
Procedure Note Date of Service July 27, 2019 Procedure: 14 Martiniquais right chest tube Indication: Loculated pleural effusion Ethanol Operator: Dr. Lynch Anesthesia: 6 mL's 1% lidocaine local Consent: Signed by patient, verified prior to commencement of procedure. Procedure: Patient was placed in a seated position the bedside. Limited th oracic ultrasound was again performed which identified a loculated right-sided effusion. See imaging in PACS. The site appropriate for catheter placement was identified marked. Skin was prepped and draped in normal sterile fashion. Using 1% lidocaine, a skin wheal was raised and the subcutaneous tissues were anesthetized. A nima in the skin was made with the scalpel and a finder needle used to enter the pleural space with aspiration of straw-colored fluid. The needle was disconnected from the syringe and a wire passed through the needle into the pleural space. The needle was then removed leaving the wire in place. Serial dilators were used to dilate the tract. Eventually a 14 Martiniquais pigtail catheter was advanced over the wire into the pleural space. The wire was removed intact. The catheter was draining yellow serous fluid. It was secured in place with a 2-0 silk suture and a sterile dressing was applied. Chest x-ray confirmed placement of the pigtail catheter. Instituting intrapleural fibrinolysis protocol with TPA and dornase. Follow-up chest x-ray in the morning. Fluid had previously been sent, see separate note. Coding CPT Codes Pulmonary/Thoracic - Pulmonary and Thoracic: Tube thoracostomy ([id number]) Pulmonary/Thoracic - Pulmonary and Thoracic: US, Chest, real time with imaging documentation ([id number])
--- NOTE | 2019-07-27 16:22 | XRay Report ---
XR chest 1V portable CLINICAL HISTORY: 54 years-old Male presenting with Right pigtail catheter. TECHNIQUE: Portable upright AP view of the chest was obtained. COMPARISON: 07/26/2019. FINDINGS: Atherosclerosis of the aortic arch. Cardiac silhouette enlarged. Interval placement of a right pigtai l pleural catheter near the right lung base into the moderate to large right pleural effusion. Poor a eration of the right mid to lower lung. Minimal left basilar opacity. No pneumothorax. Degenerative c hanges of the thoracic spine. IMPRESSION: 1. Interval placement of a right pigtail pleural catheter into the moderate to large right pleural e ffusion. 2. Extensive right basilar atelectasis unchanged. 3. No pneumothorax. 4. Trace left basilar atelectasis or effusion. Electronically signed by: Yemi Al M.D. 07/27/2019 4:21 PM
[2019-07-27] MEDS: ALTEPLASE, RECOMBINANT 10 MG in SYRINGE 50 ML IPL SCH (17:06)
[2019-07-27] MEDS: OXYCODONE/ACETAMINOPHEN 5mg/325mg TAB PO PRN (18:36)
[2019-07-27] MEDS: LEVALBUTEROL 1.25MG/0.5ML NEB NEB SCH ×2 (18:51→22:43)
[2019-07-27] MEDS ORDERED: KETOROLAC 30 MG/ML VIAL IV STA (19:57)
[2019-07-27] MEDS ORDERED: Nursing to Pharmacy Communication ONE (20:11)
[2019-07-27] MEDS ORDERED: KETOROLAC TROMETHAMINE 15 MG/ML VIAL IM STA (20:45)
[2019-07-27] MEDS: MoRPHine SULFATE 2 MG/ML CARP IV PRN (20:55)
[2019-07-28] MEDS: MoRPHine SULFATE 2 MG/ML CARP IV PRN ×3 (00:22→19:41)
[2019-07-28] MEDS: IPRATROPIUM BROMIDE NEB SOLN 0.02% 2.5 ML VIAL NEB SCH ×6 (02:13→23:32)
[2019-07-28] MEDS: LEVALBUTEROL 1.25MG/0.5ML NEB NEB SCH ×6 (02:14→23:32)
[2019-07-28] MEDS: OXYCODONE/ACETAMINOPHEN 5mg/325mg TAB PO PRN ×2 (04:14→23:43)
[2019-07-28 06:16] LABS: Allen Test Pos (Pos); Base Excess ABG 0.7 mEq/L (-9-1.8); HCO3 ABG 24 mmol/L (19-24); Oxygen Saturation ABG 91.2 % (90-95); PCO2 ABG 36 mmHg (35-46); PO2 ABG 62 mm/Hg (80-95); pH ABG 7.45 (7.35-7.45)
[2019-07-28 06:38] LABS: Hematocrit (blood only) 50.3 % (42-52); Hemoglobin 17.3 g/dL (14.0-18.0); Mean Corpuscular Hgb Conc 34.4 g/dL (32-36); Mean Corpuscular Volume 93.3 fL (80-100); Mean Platelet Volume 9.8 fL (7.4-10.4); Platelet Count 277 K/uL (130-400); RDW Coefficient of Variation 13.6 % (11.5-14.5); RDW Standard Deviation 46.7 fL (36.4-46.3); Red Blood Count 5.39 M/uL (4.7-6.1); White Blood Count 37.14 K/uL (4.8-10.8)
[2019-07-28 06:51] LABS: Basophils # (auto) 0.05 K/uL (0-0.2); Basophils % (auto) 0.1 %; Eosinophils # (auto) 0.01 K/uL (0-0.5); Immature Granulocytes # (auto) 1.17 K/uL (0.00-0.02); Immature Granulocytes % (auto) 3.2 %; Lymphocytes # (auto) 2.06 K/uL (1.2-3.4); Lymphocytes % (auto) 5.5 %; Monocytes # (auto) 2.81 K/uL (0.11-0.59); Monocytes % (auto) 7.6 %; Neutrophils # (auto) 31.04 K/uL (1.4-6.5); Neutrophils % (auto) 83.6 %
[2019-07-28 06:55] LABS: BUN Creatinine Ratio 36.3 (10-20); Calcium 9.2 mg/dl (8.5-10.1); Creatinine Clr Calc Pharmacy 112.5 ml/min; Est GFR (African American) 97.1; Est GFR (Non-African American) 83.8; Potassium 4.4 mmol/L (3.5-5.1)
--- NOTE | 2019-07-28 07:01 | XRay Report ---
XR chest 1V portable CLINICAL HISTORY: Loculated right pleural effusion COMPARISON STUDY: 07/27/2019 FINDINGS: The heart remains borderline enlarged. A right pleural pigtail catheter is again visualized . There is a right pleural effusion with associated right basilar atelectasis/consolidation. There is mild interstitial thickening and an element of mild pulmonary vascular congestion cannot be excluded . IMPRESSION: 1. Right-sided pigtail pleural drainage catheter is again visualized 2. Persistent right pleural effusion with associated right basilar airspace opacities 3. Possible mild pulmonary vascular congestion/fluid Electronically signed by: Beck Lancaster M.D. 07/28/2019 7:00 AM
[2019-07-28] MEDS ORDERED: PIPERACILL/TAZOBAC CONSULT ACTIVE PRN (07:29)
[2019-07-28] MEDS ORDERED: KETOROLAC TROMETHAMINE 15 MG/ML VIAL IV PRN (07:29)
[2019-07-28] MEDS ORDERED: PIPERACILLIN/TAZOBACTAM 3.375 GM in DEXTROSE 5% 100 ML IV SCH (07:30)
[2019-07-28] MEDS ORDERED: PIPERACILLIN/TAZOBACTAM 4.5 GM in DEXTROSE 5% 100 ML IV ONE (07:45)
[2019-07-28] MEDS: ALTEPLASE, RECOMBINANT 10 MG in SYRINGE 50 ML IPL SCH ×2 (08:06→19:46)
[2019-07-28] MEDS: FLUOXETINE HCL 20 MG CAP PO SCH ×2 (08:15→08:16)
[2019-07-28] MEDS: FUROSEMIDE 40 MG TAB PO SCH (08:16)
[2019-07-28] MEDS: methylPREDNISolone 60 MG in SYRINGE 0 ML IV SCH ×2 (08:16→19:48)
[2019-07-28] MEDS: FOLIC ACID 1 MG TAB PO SCH (08:16)
[2019-07-28] MEDS: ATORVASTATIN 10 MG TAB PO SCH (08:16)
[2019-07-28] MEDS: THIAMINE HCL 50 MG TABLET PO SCH (08:16)
[2019-07-28] MEDS: CEROVITE ADV FORMULA TAB PO SCH (08:17)
[2019-07-28] MEDS: NICOTINE 21 MG/24 HR TDSY TD SCH (08:17)
[2019-07-28] MEDS: cloNIDine HCl 0.1 MG TAB PO SCH ×2 (08:17→19:48)
[2019-07-28] MEDS: PSYLLIUM 58.6% POWDER PACKET PO SCH (08:17)
[2019-07-28] MEDS: DORNASE ALFA 5 ML in SYRINGE 25 ML IPL SCH ×2 (09:09→20:49)
--- NOTE | 2019-07-28 10:48 | Pulmonology Progress Note ---
Date of Service July 28, 2019 Assessment & Plan (1) Pleural effusion on right: Impression: 54-year-old male with extensive history of alcohol abuse and obesity presenting with rapidly progressive right-sided pleural effusion, likely parapneumonic. He is status post pigtail drainage. He had initial pain likely from reexpansion of the lung and pleural irritation with TPA but is doing much better today. Recommendations: 1. Continue MIST protocol. Daily chest x-ray. If the pleural space fails to clear, consideration for a CT scan and potential thoracoscopic evaluation may be appropriate. 2. Pneumonia/parapneumonic effusion: We will transition to Zosyn given the patient's marked leukocytosis today. De-escalation to Augmentin may be appropriate prior to discharge. 3. Morbid obesity, weight loss recommended. 4. Acute hypoxemic respiratory failure: Secondary to the current pneumonic process. Continue to follow and wean oxygen as tolerated. We will continue to follow with you. Feel free to contact us with questions or concerns. Discussed briefly with thoracic surgery and with the patient and bedside nurse Subjective Patient is doing much better this morning. He had a pigtail catheter placed on the right yesterday. He received the initial fusion of TPA intrapleurally and developed diaphoresis and significant pain radiating to the right shoulder. The patient lost his IV access and we are unable to get her period of time. No additional drainage was attempted overnight until the patient's pain control cou ld be achieved. Eventually IV access was obtained and he received Toradol and morphine with improvement in his pain. This morning he is sitting up at bedside. We have been able to reinstitute the fibrinolytic protocol and he has received TPA and dornase today with removal of approximately 2 L of serosanguineous fluid. He feels his breathing is better. Review of Systems Review of Systems: See HPI Physical Exam Constitutional: WD/WN, vitals as above Neck: trachea midline, no thyromegaly Cardiovascular: RRR, no murmur, no edema Extremities: + edema Chest (Breasts): Additional Comments: Drain in place. Clean dry and intact. Gastrointestinal (Abdomen): normal bowel sounds, soft, nontender, no hepatosplenomegaly Results & Data Vital Signs (Past 12 Hours) Vital Signs Temp Pulse Resp BP BP Pulse Ox 07/28/19 07:44 79 18 160/99 H 93 07/28/19 07:06 81 16 94 07/28/19 04:39 36.5 C 79 16 133/84 88 L 07/28/19 02:15 76 14 90 07/27/19 23:31 36.5 C 81 18 144/97 H 91 07/27/19 22:45 86 16 94 Laboratory Results 07/28/19 05:53 07/28/19 05:53 Microbiology 07/27/19 12:45 Pleural Fluid Gram Stain - Final 07/22/19 06:23 Blood Aerobic Blood Culture - Final No growth in Aerobic bottle after 5 days. 07/22/19 06:23 Blood Anaerobic Blood Culture - Final No growth in Anaerobic bottle after 5 days. 07/22/19 06:00 Blood Aerobic Blood Culture - Final No growth in Aerobic bottle after 5 days. 07/22/19 06:00 Blood Anaerobic Blood Culture - Final Diagnostic Findings Chest x-ray independently reviewed XR chest 1V portable CLINICAL HISTORY: Loculated right pleural effusion COMPARISON STUDY: 07/27/2019 FINDINGS: The heart remains borderline enlarged. A right pleural pigtail catheter is again visualized. There is a right pleural effusion with associated right basilar atelectasis/consolidation. There is mild interstitial thickening and an element of mild pulmonary vascular congestion cannot be excluded. IMPRESSION: 1. Right-sided pigtail pleural drainage catheter is again visualized 2. Persistent right pleural effusion with associated right basilar airspace opacities 3. Possible mild pulmonary vascular congestion/fluid PG Care Time/CCT Total # of Minutes Spent Total Time Spent with Patient: Total time spent is greater than 50% in coordination of care (as documented) at patient's floor/unit and/or counseling patient:
[2019-07-28] MEDS ORDERED: Nursing to Pharmacy Communication ONE (13:25)
[2019-07-28] MEDS: PIPERACILLIN/TAZOBACTAM 4.5 GM in DEXTROSE 5% 100 ML IV SCH ×2 (13:58→21:20)
--- NOTE | 2019-07-28 17:01 | Hospitalist Progress Note ---
Date of Service July 28, 2019 Assessment & Plan (1) Pneumonia: Pneumonia: likely secondary to Aspiration Bilateral pleural effusion CT chest: 1. Allowing for suboptimal image quality, no evidence of pulmonary embolus. 2. Upper lobe peripheral groundglass and solid infiltrates. The distribution of these inflammatory changes suggests an airway etiology. Differential considerations include eosinophilic pneumonia, eosinophilic granulomatosis with polyangiitis, cryptogenic organizing pneumonia, or an atypical infectious pneumonia among other etiologies. Follow-up chest CT in 3 months after treatment recommended. 3. Small right pleural effusion with right basilar atelectasis. repeat CXR: right sided pleural effusion Chest US ordered: Right-sided 850 cc, left side 500 cc Status post thoracentesis with Pleurx catheter placement on July 27, 2019 Draining 1.7 L so far, daily chest x-rays, if with no improvement may need VATS procedure Continue Lasix 40 mg daily Follow-up pleural fluid studies, cultures On intravenous Zosyn and doxycycline--> transitioned to Augmentin--> then transition to Zosyn Continue Solu-Medrol, continue [employer] on board Hypoxia secondary to Pneumonia, bilateral pleural effusions echo ordered: Left ventricular systolic function is normal, no significant valvular heart disease there is borderline concentric LVH monitor Abdominal pain Has had nonspecific abdominal pain Likely secondary to constipation (+) bilateral inguinal hernia with fat herniation , no intestinal herniation and no obstruction resolved Alcoholism /alcohol abuse on gabapentin protocol no signs of overt withdrawal today Depression Continue current medication Obesity counseled on weight loss Dyslipidemia Continue statin Tobacco use disorder counseled on cessation CODE STATUS Full Disposition pending Subjective Follow-up for pneumonia, pleural effusions Seen sitting up in bedside chair, nondistressed States breathing is slightly improved compared to yesterday but reports discomfort in the Pleurx insertion site Has intermittent dry cough Denies dizziness, headache abdominal pain, nausea vomiting No other symptoms Review of Systems Review of Systems: All systems reviewed & are unremarkable except as noted in HPI & below Physical Exam Physical Exam: General- oriented x 3, not in distress, speaks in sentences with no effort or accessory muscle use Eyes- anicteric Neck- no JVD Lungs-decreased breath of the bases No wheezing Positive Pleurx catheter on the right posterior lateral region Heart- normal rate, regular rhythm; no murmurs Abdomen- normal bowel sounds, nondistended, soft, nontender Extremities-mild lower leg edema, no calf tenderness Neuro- alert, oriented x 3; no gross focal neurologic deficits Skin- warm & dry Results & Data Vital Signs (Past 12 Hours) Vital Signs Temp Pulse Pulse Resp BP Pulse Ox Pulse Ox 07/28/19 15:43 81 16 94 07/28/19 15:39 37.4 C 77 19 141/103 H 95 07/28/19 12:00 96 07/28/19 11:24 36.9 C 77 19 96 07/28/19 11:15 78 16 93 07/28/19 08:00 74 96 07/28/19 07:44 79 18 160/99 H 93 07/28/19 07:06 81 16 94 Laboratory Results Laboratory Results - last 24 hr 07/27/19 07/28/19 07/28/19 20:31 05:53 05:53 WBC 37.14 H* RBC 5.39 Hgb 17.3 Hct 50.3 MCV 93.3 MCH 32.1 MCHC 34.4 RDW Std Deviation 46.7 H RDW Coeff of Farzaneh 13.6 Plt Count 277 MPV 9.8 Immature Gran % (Auto) 3.2 Neut % (Auto) 83.6 Lymph % (Auto) 5.5 Preble % (Auto) 7.6 Eos % (Auto) 0.0 Baso % (Auto) 0.1 Immature Gran # (Auto) 1.17 H Neut # (Auto) 31.04 H Lymph # (Auto) 2.06 Preble # (Auto) 2.81 H Eos # (Auto) 0.01 Baso # (Auto) 0.05 ABG pH ABG pCO2 ABG pO2 ABG HCO3 ABG O2 Saturation ABG Base Excess Roberto Test Barometric Pressure Oxygen Given Sodium 132 L Potassium 4.4 Chloride 99 Carbon Dioxide 24 Anion Gap 9.0 BUN 36 H D Creatinine 1.00 Est Cr Clr Drug Dosing 112.5 Est GFR ( Amer) 97.1 Est GFR (Non-Af Amer) 83.8 BUN/Creatinine Ratio 36.3 H Glucose 129 H POC Glucose 135 H Calcium 9.2 07/28/19 06:02 WBC RBC Hgb Hct MCV MCH MCHC RDW Std Deviation RDW Coeff of Farzaneh Plt Count MPV Immature Gran % (Auto) Neut % (Auto) Lymph % (Auto) Preble % (Auto) Eos % (Auto) Baso % (Auto) Immature Gran # (Auto) Neut # (Auto) Lymph # (Auto) Preble # (Auto) Eos # (Auto) Baso # (Auto) ABG pH 7.45 ABG pCO2 36 ABG pO2 62 L ABG HCO3 24 ABG O2 Saturation 91.2 ABG Base Excess 0.7 Roberto Test Pos Barometric Pressure 733.7 Oxygen Given 2L Sodium Potassium Chloride Carbon Dioxide Anion Gap BUN Creatinine Est Cr Clr Drug Dosing Est GFR ( Amer) Est GFR (Non-Af Amer) BUN/Creatinine Ratio Glucose POC Glucose Calcium
[2019-07-29] MEDS: MoRPHine SULFATE 2 MG/ML CARP IV PRN (00:45)
[2019-07-29] MEDS: LEVALBUTEROL 1.25MG/0.5ML NEB NEB SCH ×6 (03:25→23:59)
[2019-07-29] MEDS: IPRATROPIUM BROMIDE NEB SOLN 0.02% 2.5 ML VIAL NEB SCH ×6 (03:25→23:59)
[2019-07-29] MEDS: PIPERACILLIN/TAZOBACTAM 4.5 GM in DEXTROSE 5% 100 ML IV SCH ×3 (06:11→22:17)
[2019-07-29 06:24] LABS: Hematocrit (blood only) 50.7 % (42-52); Hemoglobin 17.9 g/dL (14.0-18.0); Mean Corpuscular Hgb Conc 35.3 g/dL (32-36); Mean Corpuscular Volume 91.8 fL (80-100); Mean Platelet Volume 9.8 fL (7.4-10.4); Platelet Count 281 K/uL (130-400); RDW Coefficient of Variation 13.3 % (11.5-14.5); RDW Standard Deviation 45.1 fL (36.4-46.3); Red Blood Count 5.52 M/uL (4.7-6.1); White Blood Count 28.48 K/uL (4.8-10.8)
[2019-07-29 06:55] LABS: Basophils # (auto) 0.03 K/uL (0-0.2); Basophils % (auto) 0.1 %; Immature Granulocytes # (auto) 0.79 K/uL (0.00-0.02); Immature Granulocytes % (auto) 2.8 %; Lymphocytes # (auto) 1.97 K/uL (1.2-3.4); Lymphocytes % (auto) 6.9 %; Monocytes # (auto) 2.32 K/uL (0.11-0.59); Monocytes % (auto) 8.1 %; Neutrophils # (auto) 23.37 K/uL (1.4-6.5); Neutrophils % (auto) 82.1 %
[2019-07-29] MEDS: DORNASE ALFA 5 ML in SYRINGE 25 ML IPL SCH ×3 (06:58→21:36)
--- NOTE | 2019-07-29 07:02 | XRay Report ---
XR chest 1V portable CLINICAL HISTORY: Loculated right pleural effusion COMPARISON STUDY: 07/28/2019 FINDINGS: A right-sided pigtail pleural drainage catheter is again visualized. There is interval decr ease in the size the right pleural effusion. There are persistent right basilar airspace opacities im proved when compared the prior study. Minimal left basilar opacities likely atelectatic persist.[No p neumothorax is visualized. IMPRESSION: Interval decrease in the size the right pleural effusion with improving aeration of the r ight lung base. Electronically signed by: Beck Lancaster M.D. 07/29/2019 7:00 AM
[2019-07-29 07:11] LABS: BUN Creatinine Ratio 35.6 (10-20); Calcium 8.7 mg/dl (8.5-10.1); Creatinine Clr Calc Pharmacy 167.8 ml/min; Est GFR (African American) 124.5; Est GFR (Non-African American) 107.4; Potassium 4.3 mmol/L (3.5-5.1)
--- NOTE | 2019-07-29 07:26 | Pulmonology Progress Note ---
Date of Service July 29, 2019 Assessment & Plan (1) Pleural effusion on right: Impression: 54-year-old male with extensive history of alcohol abuse and obesity presenting with rapidly progressive right-sided pleural effusion, likely parapneumonic. He is status post pigtail drainage. Chest x-ray much improved however output continues to be somewhat high through the tube Recommendations: 1. Continue MIST protocol. Daily chest x-ray. Keep tube in place until drainage decreases appreciably 2. Pneumonia/parapneumonic effusion: We will continue Zosyn given the patient's marked leukocytosis. De-escalation to Augmentin may be appropriate prior to discharge. Will likely need 14 days total antimicrobial therapy 3. Morbid obesity, weight loss recommended. 4. Acute hypoxemic respiratory failure: Secondary to the current pneumonic process. Continue to follow and wean oxygen as tolerated. We will continue to follow with you. Feel free to contact us with questions or concerns. Subjective Patient continues drainage of the pleural fluid. He continues to experience improvement from respiratory standpoint. He did have some shortness of breath associated with the latest round of instillation of TPA and dornase but the symptoms of resolved. His chest x-ray looks much better. He is not experiencing fevers chills or night sweats. He is tolerating a diet. Chest tube output for the last 24 hours is approximately 900 cc. Review of Systems Review of Systems: Negative except as noted in HPI Physical Exam Constitutional: WD/WN, vitals as above Neck: trachea midline, no thyromegaly Respiratory: Lungs clear to auscultation anteriorly. Pigtail chest tube site clean dry and intact and dressed Cardiovascular: RRR, no murmur, no edema Extremities: + edema Gastrointestinal (Abdomen): normal bowel sounds, soft, nontender, no hepatosplenomegaly Results & Data Vital Signs (Past 12 Hours) Vital Signs Temp Pulse Pulse Resp BP Pulse Ox 07/29/19 06:56 83 16 92 07/29/19 03:46 36.4 C L 84 19 157/108 H 95 07/29/19 03:28 65 16 94 07/29/19 00:00 75 07/28/19 23:49 36.5 C 77 19 135/94 92 07/28/19 23:34 82 16 92 07/28/19 20:01 36.4 C L 80 21 155/102 H 92 07/28/19 19:45 81 18 151/94 H 91 PG Care Time/CCT Total # of Minutes Spent Total Time Spent with Patient: Total time spent is greater than 50% in coordination of care (as documented) at patient's floor/unit and/or counseling patient:
[2019-07-29] MEDS: ALTEPLASE, RECOMBINANT 10 MG in SYRINGE 50 ML IPL SCH ×2 (08:24→20:34)
[2019-07-29] MEDS: PSYLLIUM 58.6% POWDER PACKET PO SCH (08:25)
[2019-07-29] MEDS: CEROVITE ADV FORMULA TAB PO SCH (08:25)
[2019-07-29] MEDS: methylPREDNISolone 60 MG in SYRINGE 0 ML IV SCH ×2 (08:25→20:33)
[2019-07-29] MEDS: ATORVASTATIN 10 MG TAB PO SCH (08:25)
[2019-07-29] MEDS: FLUOXETINE HCL 20 MG CAP PO SCH ×2 (08:25)
[2019-07-29] MEDS: cloNIDine HCl 0.1 MG TAB PO SCH ×2 (08:25→20:33)
[2019-07-29] MEDS: FOLIC ACID 1 MG TAB PO SCH (08:26)
[2019-07-29] MEDS: FUROSEMIDE 40 MG TAB PO SCH (08:26)
[2019-07-29] MEDS: NICOTINE 21 MG/24 HR TDSY TD SCH (08:26)
[2019-07-29] MEDS: THIAMINE HCL 50 MG TABLET PO SCH (09:27)
--- NOTE | 2019-07-29 14:31 | Hospitalist Progress Note ---
Date of Service July 29, 2019 Assessment & Plan (1) Pneumonia: Pneumonia: likely secondary to Aspiration Bilateral pleural effusion CT chest: 1. Allowing for suboptimal image quality, no evidence of pulmonary embolus. 2. Upper lobe peripheral groundglass and solid infiltrates. The distribution of these inflammatory changes suggests an airway etiology. Differential considerations include eosinophilic pneumonia, eosinophilic granulomatosis with polyangiitis, cryptogenic organizing pneumonia, or an atypical infectious pneumonia among other etiologies. Follow-up chest CT in 3 months after treatment recommended. 3. Small right pleural effusion with right basilar atelectasis. CXR: right sided pleural effusion Chest US ordered: Right-sided 850 cc, left side 500 cc Status post thoracentesis with Pleurx catheter placement on July 27, 2019 Draining 1.7 L so far, daily chest x-rays, if with no improvement may need VATS procedure Continue Lasix 40 mg daily Pleural fluid-Gram stain negative, AFB stain negative, cultures pending On intravenous Zosyn and doxycycline--> transitioned to Augmentin--> then transition to Zosyn Continue Solu-Medrol, continue [facility] [employer] Coach on board-appreciate input and recommendation We will change intravenous Solu-Medrol to oral prednisone from tomorrow Hypoxia secondary to Pneumonia, bilateral pleural effusions echo ordered: Left ventricular systolic function is normal, no significant valvular heart disease there is borderline concentric LVH monitor Abdominal pain Has had nonspecific abdominal pain Likely secondary to constipation (+) bilateral inguinal hernia with fat herniation , no intestinal herniation and no obstruction resolved No active pain in the abdomen Alcoholism /alcohol abuse on gabapentin protocol no signs of overt withdrawal We will have outpatient alcohol rehab Depression Continue current medication Obesity counseled on weight loss Dyslipidemia Continue statin Tobacco use disorder counseled on cessation CODE STATUS Full Disposition pending for now Subjective 07/29 Patient is seen and examined in telemetry unit Status post right Pleurx catheter placement and still draining considerable amount through the tube He has been feeling a lot better and denies any shortness of breath at rest Review of Systems Review of Systems: All systems reviewed and are unremarkable except as noted below Respiratory: + cough; no dyspnea (At rest) Right Pleurx catheter in situ and draining considerable amount. Physical Exam Physical Exam: Sitting on a chair without any acute symptoms Constitutional: well developed, well nourished, + ill appearing and + obese Eyes: PERRL, conjunctivae normal, anicteric sclerae ENMT: external ear and nose normal, oropharynx normal Neck: trachea midline, no thyromegaly Respiratory: + respiratory distress (Minimal) Auscultation: + diminished lung sounds, + crackles (Upper lung pichardo) and + wheezes Cardiovascular: Rate/Rhythm: regular rate and regular rhythm Gastrointestinal (Abdomen): Inspection/Auscultation: + abdomen distended Percussion/Palpation: abdomen soft; abdomen nontender Neurologic: moves all extremities; no focal motor deficits Psychiatric: A+Ox3, euthymic affect Lymphatic: no cervical or axillary lymphadenopathy Results & Data Vital Signs (Past 12 Hours) Vital Signs Temp Pulse Resp BP BP Pulse Ox 07/29/19 12:01 134/79 07/29/19 11:41 36.4 C L 78 20 164/106 H 91 07/29/19 11:21 84 16 92 07/29/19 08:00 36.8 C 82 18 153/97 H 97 07/29/19 06:56 83 16 92 07/29/19 03:46 36.4 C L 84 19 157/108 H 95 07/29/19 03:28 65 16 94 Laboratory Results Short CBC 07/29/19 Range/Units 05:57 WBC 28.48 H (4.8-10.8) K/uL Hgb 17.9 (14.0-18.0) g/dL Hct 50.7 (42-52) % Plt Count 281 (130-400) K/uL BMP 07/29/19 05:57 Sodium 131 L Potassium 4.3 Chloride 97 L Carbon Dioxide 24 BUN 24 H Creatinine 0.67 D Glucose 131 H Calcium 8.7 Medications Administered Current Inpatient Medications Acetaminophen (Tylenol) 650 mg PO Q4H PRN PRN Reason: Pain or Fever Stop: 08/21/19 05:17 Last Admin: 07/26/19 01:16 Dose: 650 mg Documented by: Atorvastatin Calcium (Lipitor) 10 mg PO QAM [facility] Stop: 08/21/19 08:59 Last Admin: 07/29/19 08:25 Dose: 10 mg Documented by: Clonidine HCl (Catapres) 0.1 mg PO BID [facility] Stop: 08/21/19 10:14 Last Admin: 07/29/19 08:25 Dose: 0.1 mg Documented by: Cyclobenzaprine HCl (Flexeril) 10 mg PO TID PRN PRN Reason: muscle spasm Stop: 08/21/19 05:17 Last Admin: 07/27/19 08:12 Dose: 10 mg Documented by: Fluoxetine HCl (Prozac) 20 mg PO QAM [facility] Stop: 08/21/19 08:59 Last Admin: 07/29/19 08:25 Dose: 20 mg Documented by: Fluoxetine HCl (Prozac) 40 mg PO DAILY [facility] Stop: 08/21/19 08:59 Last Admin: 07/29/19 08:25 Dose: 40 mg Documented by: Folic Acid (Folvite) 1 mg PO QAM [facility] Stop: 08/24/19 08:59 Last Admin: 07/29/19 08:26 Dose: 1 mg Documented by: Furosemide (Lasix) 40 mg PO DAILY [facility] Stop: 08/25/19 08:59 Last Admin: 07/29/19 08:26 Dose: 40 mg Documented by: Lorazepam (Ativan) 1.5 mg in 3 mls @ 3 mls/min IV Q2H PRN PRN Reason: Alcohol Withdrawal Stop: 08/21/19 05:17 Last Admin: 07/22/19 12:20 Dose: 3 mls/min Documented by: Methylprednisolone 60 mg/ (Syringe) 0.96 mls @ 1.5 mls/min IV Q12H [facility] Stop: 08/25/19 09:29 Last Admin: 07/29/19 08:25 Dose: 1.5 mls/min Documented by: Alteplase, Recombinant 10 mg/ (Syringe) 60 mls @ 0.0006 mls/min IPL Q12H [facility]; Protocol Stop: 07/30/19 19:59 Last Admin: 07/29/19 08:24 Dose: 0.0006 mls/min Documented by: Dornase Landen 5 ml/ Syringe 30 mls @ 0.0006 mls/min IPL Q12H [facility]; Protocol Stop: 07/30/19 20:59 Last Admin: 07/29/19 09:27 Dose: 0.0006 mls/min Documented by: Piperacillin Sod/Tazobactam (Sod 4.5 gm/ Dextrose) 120 mls @ 30 mls/hr IV Q8H [facility]; Protocol Stop: 08/04/19 13:59 Last Admin: 07/29/19 13:51 Dose: 30 mls/hr Documented by: Ipratropium Revloc (Atrovent 0.02% 0.5mg/2.5ml) 0.5 mg INH Q4H PRN PRN Reason: Shortness Of Breath/Wheezing Stop: 08/21/19 05:17 Ipratropium Revloc (Atrovent 0.02% 0.5mg/2.5ml) 0.5 mg NEB Q4R [facility] Stop: 08/25/19 10:59 Last Admin: 07/29/19 11:21 Dose: 0.5 mg Documented by: Ketorolac Tromethamine (Toradol) 15 mg IV Q6H PRN PRN Reason: Pain Levalbuterol HCl (Xopenex 1.25mg/0.5ml Neb) 1.25 mg NEB Q4R [facility] Stop: 08/26/19 18:59 Last Admin: 07/29/19 11:21 Dose: 1.25 mg Documented by: Miscellaneous (Remove Nicoderm Patch) 1 ea N/A HS [facility] Stop: 08/22/19 20:59 Last Admin: 07/28/19 19:56 Dose: Not Given Documented by: Miscellaneous Information (Consult) 1 ea N/A UD PRN PRN Reason: Consult Stop: 08/27/19 07:28 Morphine Sulfate (Morphine Sulfate) 2 - 4 mg IV Q2H PRN; Protocol PRN Reason: Pain unresponsive to Percocet Stop: 08/10/19 20:21 Last Admin: 07/29/19 00:45 Dose: 2 mg Documented by: Multivitamins/Minerals (Multivitamin W/ Minerals Tab) 1 tab PO QAM [facility] Stop: 08/21/19 08:59 Last Admin: 07/29/19 08:25 Dose: 1 tab Documented by: Nicotine (Nicoderm Cq) 21 mg TD QAM [facility] Stop: 08/22/19 14:29 Last Admin: 07/29/19 08:26 Dose: Not Given Documented by: Nitroglycerin (Nitrostat) 0.4 mg SL UD PRN PRN Reason: Chest Pain Stop: 08/21/19 05:17 Ondansetron HCl (Zofran) 4 mg IV Q6H PRN PRN Reason: Nausea Stop: 08/21/19 05:17 Oxycodone/Acetaminophen (Percocet 5mg/325mg) 1 - 2 tab PO Q4H PRN; Protocol PRN Reason: Pain Stop: 08/10/19 18:26 Last Admin: 07/28/19 23:43 Dose: 1 tab Documented by: Psyllium Hydrophilic Mucilloid (Metamucil) 1 pkt PO [facility] Stop: 08/22/19 15:59 Last Admin: 07/29/19 08:25 Dose: 1 pkt Documented by: Thiamine HCl (Vitamin B-1) 50 mg PO [facility] Stop: 08/24/19 08:59 Last Admin: 07/29/19 09:27 Dose: 50 mg Documented by:
[2019-07-30] MEDS: LEVALBUTEROL 1.25MG/0.5ML NEB NEB SCH ×6 (03:24→23:21)
[2019-07-30] MEDS: IPRATROPIUM BROMIDE NEB SOLN 0.02% 2.5 ML VIAL NEB SCH ×6 (03:24→23:21)
[2019-07-30 06:05] LABS: Basophils # (auto) 0.02 K/uL (0-0.2); Basophils % (auto) 0.1 %; Hematocrit (blood only) 47.5 % (42-52); Hemoglobin 16.4 g/dL (14.0-18.0); Immature Granulocytes # (auto) 0.61 K/uL (0.00-0.02); Immature Granulocytes % (auto) 2.5 %; Lymphocytes # (auto) 2.52 K/uL (1.2-3.4); Lymphocytes % (auto) 10.2 %; Mean Corpuscular Hgb Conc 34.5 g/dL (32-36); Mean Corpuscular Volume 93.1 fL (80-100); Mean Platelet Volume 9.4 fL (7.4-10.4); Monocytes # (auto) 1.71 K/uL (0.11-0.59); Monocytes % (auto) 6.9 %; Neutrophils # (auto) 19.93 K/uL (1.4-6.5); Neutrophils % (auto) 80.3 %; Platelet Count 325 K/uL (130-400); RDW Coefficient of Variation 13.4 % (11.5-14.5); RDW Standard Deviation 45.6 fL (36.4-46.3); White Blood Count 24.79 K/uL (4.8-10.8)
[2019-07-30] MEDS: PIPERACILLIN/TAZOBACTAM 4.5 GM in DEXTROSE 5% 100 ML IV SCH ×3 (06:14→21:24)
[2019-07-30 06:31] LABS: BUN Creatinine Ratio 27.5 (10-20); Calcium 8.4 mg/dl (8.5-10.1); Creatinine Clr Calc Pharmacy 136.2 ml/min; Est GFR (African American) 114.6; Est GFR (Non-African American) 98.9; Potassium 4.5 mmol/L (3.5-5.1)
[2019-07-30] MEDS: FUROSEMIDE 40 MG TAB PO SCH (08:20)
[2019-07-30] MEDS: FLUOXETINE HCL 20 MG CAP PO SCH ×2 (08:20→08:21)
[2019-07-30] MEDS: cloNIDine HCl 0.1 MG TAB PO SCH ×2 (08:21→21:23)
[2019-07-30] MEDS: CEROVITE ADV FORMULA TAB PO SCH (08:21)
[2019-07-30] MEDS: PSYLLIUM 58.6% POWDER PACKET PO SCH (08:21)
[2019-07-30] MEDS: THIAMINE HCL 50 MG TABLET PO SCH (08:21)
[2019-07-30] MEDS: ATORVASTATIN 10 MG TAB PO SCH (08:21)
[2019-07-30] MEDS: FOLIC ACID 1 MG TAB PO SCH (08:21)
[2019-07-30] MEDS: NICOTINE 21 MG/24 HR TDSY TD SCH (08:22)
--- NOTE | 2019-07-30 08:30 | XRay Report ---
XR chest 1V portable HISTORY: 54 years-old Male Loculated right pleural effusion follow-up study in a patient with locula lauryn right pleural effusion COMPARISON: Chest radiograph 07/29/2019 TECHNIQUE: Portable AP view of the chest FINDINGS: Cardiac silhouette is mildly enlarged, unchanged. Pleural drainage catheter about the right lung base redemonstrated. Right pleural effusion is unchanged with persistent right greater than left bibasila r opacities. Degenerative changes of the shoulders and spine. IMPRESSION: Unchanged right pleural effusion with right lung base opacities. The above report was generated using voice recognition software. It may contain grammatical, syntax o r spelling errors. Electronically signed by: Yonatan Couch M.D. 07/30/2019 8:28 AM
[2019-07-30] MEDS: ALTEPLASE, RECOMBINANT 10 MG in SYRINGE 50 ML IPL SCH (08:33)
[2019-07-30] MEDS: DORNASE ALFA 5 ML in SYRINGE 25 ML IPL SCH (09:46)
[2019-07-30] MEDS: methylPREDNISolone 60 MG in SYRINGE 0 ML IV SCH (10:55)
[2019-07-30] MEDS: predniSONE 20 MG TAB PO SCH (12:04)
--- NOTE | 2019-07-30 12:34 | Pulmonology Progress Note ---
Date of Service July 30, 2019 Assessment & Plan (1) Pleural effusion on right: Impression: 54-year-old male with extensive history of alcohol abuse and obesity presenting with rapidly progressive right-sided pleural effusion, likely parapneumonic. He is status post pigtail drainage. Chest x-ray much improved however output continues to be somewhat high through the tube Recommendations: 1. Continue MIST protocol. Daily chest x-ray. Keep tube in place until drainage decreases below 200 mL a day. He is significantly better today. We may be able to remove the catheter tonight versus tomorrow. 2. Pneumonia/parapneumonic effusion: We will continue Zosyn given the patient's marked leukocytosis. De-escalation to Augmentin may be appropriate prior to discharge. Will likely need 14 days total antimicrobial therapy. Recommend follow-up chest x-ray in 2 to 3 weeks. 3. Morbid obesity, weight loss recommended. 4. Acute hypoxemic respiratory failure: Secondary to the current pneumonic process. Continue to follow and wean oxygen as tolerated. We will continue to follow with you. Feel free to contact us with questions or concerns. Subjective Patient continues to show subjective improvement. His pain is well controlled. Drainage is decreasing significantly from the pleural drain. He has not had any fevers chills or sweats overnight his appetite is reasonably good. Review of Systems Review of Systems: Negative except as noted in HPI Physical Exam Constitutional: WD/WN, vitals as above Neck: trachea midline, no thyromegaly Respiratory: Drain site clean dry and intact. Crackles at the right lung base. Cardiovascular: RRR, no murmur, no edema Extremities: + edema Gastrointestinal (Abdomen): normal bowel sounds, soft, nontender, no hepatosplenomegaly Results & Data Vital Signs (Past 12 Hours) Vital Signs Temp Pulse Resp BP BP Pulse Ox 07/30/19 11:21 36.1 C L 75 20 145/85 H 95 07/30/19 11:10 89 16 94 07/30/19 07:25 36.1 C L 79 20 148/93 H 90 07/30/19 06:58 67 16 92 07/30/19 03:58 36.6 C 72 21 141/84 H 93 07/30/19 03:26 68 16 94 Laboratory Results 07/30/19 05:36 07/30/19 05:36 Diagnostic Findings Films independently reviewed XR chest 1V portable HISTORY: 54 years-old Male Loculated right pleural effusion follow-up study in a patient with loculated right pleural effusion COMPARISON: Chest radiograph 07/29/2019 TECHNIQUE: Portable AP view of the chest FINDINGS: Cardiac silhouette is mildly enlarged, unchanged. Pleural drainage catheter about the right lung base redemonstrated. Right pleural effusion is unchanged with persistent right greater than left bibasilar opacities. Degenerative changes of the shoulders and spine. IMPRESSION: Unchanged right pleural effusion with right lung base opacities. PG Care Time/CCT Total # of Minutes Spent Total Time Spent with Patient: Total time spent is greater than 50% in coordination of care (as documented) at patient's floor/unit and/or counseling patient:
[2019-07-31] MEDS: IPRATROPIUM BROMIDE NEB SOLN 0.02% 2.5 ML VIAL NEB SCH ×4 (03:11→15:20)
[2019-07-31] MEDS: LEVALBUTEROL 1.25MG/0.5ML NEB NEB SCH ×4 (03:11→15:20)
[2019-07-31] MEDS: PIPERACILLIN/TAZOBACTAM 4.5 GM in DEXTROSE 5% 100 ML IV SCH (05:58)
[2019-07-31 06:19] LABS: Basophils # (auto) 0.01 K/uL (0-0.2); Basophils % (auto) 0.1 %; Eosinophils # (auto) 0.01 K/uL (0-0.5); Eosinophils % (auto) 0.1 %; Hematocrit (blood only) 45.2 % (42-52); Hemoglobin 15.5 g/dL (14.0-18.0); Immature Granulocytes # (auto) 0.41 K/uL (0.00-0.02); Immature Granulocytes % (auto) 2.1 %; Lymphocytes # (auto) 3.93 K/uL (1.2-3.4); Lymphocytes % (auto) 20.4 %; Mean Corpuscular Hgb Conc 34.3 g/dL (32-36); Mean Corpuscular Volume 93.4 fL (80-100); Mean Platelet Volume 9.3 fL (7.4-10.4); Monocytes # (auto) 1.83 K/uL (0.11-0.59); Monocytes % (auto) 9.5 %; Neutrophils # (auto) 13.05 K/uL (1.4-6.5); Neutrophils % (auto) 67.8 %; Platelet Count 305 K/uL (130-400); RDW Coefficient of Variation 13.3 % (11.5-14.5); RDW Standard Deviation 45.6 fL (36.4-46.3); Red Blood Count 4.84 M/uL (4.7-6.1); White Blood Count 19.24 K/uL (4.8-10.8)
[2019-07-31 06:55] LABS: BUN Creatinine Ratio 25.3 (10-20); Calcium 8.3 mg/dl (8.5-10.1); Creatinine Clr Calc Pharmacy 124.1 ml/min; Est GFR (African American) 110.3; Est GFR (Non-African American) 95.1; Potassium 3.6 mmol/L (3.5-5.1)
[2019-07-31] MEDS: PSYLLIUM 58.6% POWDER PACKET PO SCH (08:39)
[2019-07-31] MEDS: cloNIDine HCl 0.1 MG TAB PO SCH (08:40)
[2019-07-31] MEDS: FOLIC ACID 1 MG TAB PO SCH (08:41)
[2019-07-31] MEDS: THIAMINE HCL 50 MG TABLET PO SCH (08:41)
[2019-07-31] MEDS: FUROSEMIDE 40 MG TAB PO SCH (08:41)
[2019-07-31] MEDS: FLUOXETINE HCL 20 MG CAP PO SCH ×2 (08:42→08:44)
[2019-07-31] MEDS: NICOTINE 21 MG/24 HR TDSY TD SCH (08:43)
[2019-07-31] MEDS: CEROVITE ADV FORMULA TAB PO SCH (08:44)
[2019-07-31] MEDS: ATORVASTATIN 10 MG TAB PO SCH (08:44)
[2019-07-31] MEDS: predniSONE 20 MG TAB PO SCH (08:44)
--- NOTE | 2019-07-31 10:04 | Pulmonology Progress Note ---
Date of Service July 31, 2019 Assessment & Plan (1) Pleural effusion on right: Impression: 54-year-old male with extensive history of alcohol abuse and obesity presenting with rapidly progressive right-sided pleural effusion, likely parapneumonic. He is status post pigtail drainage. Chest x-ray improved and drainage is now minimal. The pigtail catheter was removed this morning Recommendations: 1. Catheter removed today. Will obtain new baseline PA and lateral chest x- ray. Would not recommend steroids and these will be discontinued at this time.. 2. Pneumonia/parapneumonic effusion: Okay to transition to oral Augmentin for an additional 2 weeks. Recommend follow-up chest x-ray in 2 to 3 weeks. I would be happy to see him back in clinic with his follow-up x-ray 3. Morbid obesity, weight loss recommended. 4. Acute hypoxemic respiratory failure: Secondary to the current pneumonic process. Now on room air We will continue to follow with you. Feel free to contact us with questions or concerns. Okay to discharge from a pulmonary standpoint. Subjective Patient feels well. No chest pain. Drainage is minimal. Is not experiencing any shortness of breath. No fevers chills or night sweats. Review of Systems Review of Systems: Negative except as noted in HPI Physical Exam Constitutional: WD/WN, vitals as above Neck: trachea midline, no thyromegaly Respiratory: Diminished breath sounds right lung base. No wheezing Cardiovascular: RRR, no murmur, no edema Extremities: + edema Gastrointestinal (Abdomen): normal bowel sounds, soft, nontender, no hepatosplenomegaly Results & Data Vital Signs (Past 12 Hours) Vital Signs Temp Pulse Resp BP BP Pulse Ox 07/31/19 08:15 36.6 C 70 18 121/79 93 07/31/19 07:21 68 17 93 07/31/19 03:11 83 16 96 07/31/19 03:00 36.4 C L 80 20 134/81 98 07/31/19 00:13 36.7 C 70 20 131/93 94 07/30/19 23:21 73 16 97 PG Care Time/CCT Total # of Minutes Spent Total Time Spent with Patient: Total time spent is greater than 50% in coordination of care (as documented) at patient's floor/unit and/or counseling patient:
--- NOTE | 2019-07-31 12:06 | XRay Report ---
XR chest 2V routine CLINICAL HISTORY: 54 years-old Male presenting with pleural effusion, post drain removal. TECHNIQUE: PA and lateral views of the chest were obtained. COMPARISON: 07/30/2019. FINDINGS: Atherosclerosis of the aortic arch. Cardiac silhouette borderline enlarged. Elevation of the right he midiaphragm as on prior exam. Interval removal of the prior right pigtail pleural drain. Architectura l distortion and minimal linear opacities in the mid to lower right lung. Minimal linear opacities at the left lung base. Trace right pleural effusion. No pneumothorax. Degenerative changes of the thora cic spine. Upper abdomen normal. IMPRESSION: 1. Interval removal of the right pigtail pleural drain there is no pneumothorax. 2. Residual right basilar architectural distortion and scarring. 3. Small right pleural effusion. 4. Minimal left basilar atelectasis. 5. Borderline cardiomegaly. Electronically signed by: Yemi Al M.D. 07/31/2019 12:05 PM
--- NOTE | 2019-07-31 12:17 | Hospitalist Progress Note ---
Date of Service Date of service is 07/30July 31, 2019 Assessment & Plan (1) Pneumonia: Pneumonia: likely secondary to Aspiration Bilateral pleural effusion CT chest: 1. Allowing for suboptimal image quality, no evidence of pulmonary embolus. 2. Upper lobe peripheral groundglass and solid infiltrates. The distribution of these inflammatory changes suggests an airway etiology. Differential considerations include eosinophilic pneumonia, eosinophilic granulomatosis with polyangiitis, cryptogenic organizing pneumonia, or an atypical infectious pneumonia among other etiologies. Follow-up chest CT in 3 months after treatment recommended. 3. Small right pleural effusion with right basilar atelectasis. CXR: right sided pleural effusion Chest US ordered: Right-sided 850 cc, left side 500 cc Status post thoracentesis with Pleurx catheter placement on July 27, 2019 Draining 1.7 L so far, daily chest x-rays, if with no improvement may need VATS procedure Continue Lasix 40 mg daily Pleural fluid-Gram stain negative, AFB stain negative, cultures pending On intravenous Zosyn and doxycycline--> transitioned to Augmentin--> then transition to Zosyn Continue Solu-Medrol, continue [employer] on board-appreciate input and recommendation We will change intravenous Solu-Medrol to oral prednisone from tomorrow We will continue current medications Clinically improving Hypoxia secondary to Pneumonia, bilateral pleural effusions echo ordered: Left ventricular systolic function is normal, no significant valvular heart disease there is borderline concentric LVH monitor We will get to do steps O2 saturation test before discharge Abdominal pain Has had nonspecific abdominal pain Likely secondary to constipation (+) bilateral inguinal hernia with fat herniation , no intestinal herniation and no obstruction resolved No active pain in the abdomen Alcoholism /alcohol abuse on gabapentin protocol no signs of overt withdrawal We will have outpatient alcohol rehab Depression Continue current medication Obesity counseled on weight loss Dyslipidemia Continue statin Tobacco use disorder counseled on cessation CODE STATUS Full Disposition pending for now Subjective 07/29 Patient is seen and examined in telemetry unit Status post right Pleurx catheter placement and still draining considerable amount through the tube He has been feeling a lot better and denies any shortness of breath at rest 07/30 The patient was seen and examined in telemetry unit He still has a chest tube in and complains of some pain with deep breathing Denies any other symptoms Review of Systems Review of Systems: All systems reviewed and unremarkable except as noted below Respiratory: Pain at the chest tube site with deep breathing Physical Exam Physical Exam: Sitting on a chair outside bed without any symptoms Constitutional: well developed, well nourished, + ill appearing and + obese Eyes: PERRL, conjunctivae normal, anicteric sclerae ENMT: external ear and nose normal, oropharynx normal Neck: trachea midline, no thyromegaly Respiratory: + respiratory distress (Minimal) Auscultation: + diminished lung sounds, + crackles (Upper lung pichardo) and + wheezes Cardiovascular: Rate/Rhythm: regular rate and regular rhythm Gastrointestinal (Abdomen): Inspection/Auscultation: + abdomen distended Percussion/Palpation: abdomen soft; abdomen nontender Neurologic: moves all extremities; no focal motor deficits Psychiatric: A+Ox3, euthymic affect Lymphatic: no cervical or axillary lymphadenopathy Results & Data Vital Signs (Past 12 Hours) Vital Signs Temp Pulse Pulse Pulse Pulse Pulse Resp 07/31/19 11:18 86 18 07/31/19 11:16 88 86 70 07/31/19 08:15 36.6 C 70 18 07/31/19 08:00 67 07/31/19 07:21 68 17 07/31/19 03:11 83 16 07/31/19 03:00 36.4 C L 80 20 07/31/19 00:13 36.7 C 70 20 Resp Resp Resp BP BP Pulse Ox Pulse Ox 07/31/19 11:18 95 07/31/19 11:16 19 18 17 92 07/31/19 08:15 121/79 93 07/31/19 08:00 07/31/19 07:21 93 07/31/19 03:11 96 07/31/19 03:00 134/81 98 07/31/19 00:13 131/93 94 Pulse Ox Pulse Ox 07/31/19 11:18 07/31/19 11:16 94 95 07/31/19 08:15 07/31/19 08:00 07/31/19 07:21 07/31/19 03:11 07/31/19 03:00 07/31/19 00:13 Laboratory Results Short CBC 07/31/19 Range/Units 05:55 WBC 19.24 H (4.8-10.8) K/uL Hgb 15.5 (14.0-18.0) g/dL Hct 45.2 (42-52) % Plt Count 305 (130-400) K/uL BMP 07/31/19 05:55 Sodium 137 Potassium 3.6 D Chloride 99 Carbon Dioxide 32 BUN 23 H Creatinine 0.90 Glucose 92 Calcium 8.3 L Medications Administered Current Inpatient Medications Acetaminophen (Tylenol) 650 mg PO Q4H PRN PRN Reason: Pain or Fever Stop: 08/21/19 05:17 Last Admin: 07/26/19 01:16 Dose: 650 mg Documented by: Amoxicillin/Clavulanate Potassium (Augmentin 875mg) 1 tab PO BIDM [facility] Stop: 08/14/19 08:01 Atorvastatin Calcium (Lipitor) 10 mg PO QAM [facility] Stop: 08/21/19 08:59 Last Admin: 07/31/19 08:44 Dose: 10 mg Documented by: Clonidine HCl (Catapres) 0.1 mg PO BID [facility] Stop: 08/21/19 10:14 Last Admin: 07/31/19 08:40 Dose: 0.1 mg Documented by: Cyclobenzaprine HCl (Flexeril) 10 mg PO TID PRN PRN Reason: muscle spasm Stop: 08/21/19 05:17 Last Admin: 07/27/19 08:12 Dose: 10 mg Documented by: Fluoxetine HCl (Prozac) 20 mg PO QAM [facility] Stop: 08/21/19 08:59 Last Admin: 07/31/19 08:42 Dose: 20 mg Documented by: Fluoxetine HCl (Prozac) 40 mg PO DAILY [facility] Stop: 08/21/19 08:59 Last Admin: 07/31/19 08:44 Dose: 40 mg Documented by: Folic Acid (Folvite) 1 mg PO QAM [facility] Stop: 08/24/19 08:59 Last Admin: 07/31/19 08:41 Dose: 1 mg Documented by: Furosemide (Lasix) 40 mg PO DAILY [facility] Stop: 08/25/19 08:59 Last Admin: 07/31/19 08:41 Dose: 40 mg Documented by: Lorazepam (Ativan) 1.5 mg in 3 mls @ 3 mls/min IV Q2H PRN PRN Reason: Alcohol Withdrawal Stop: 08/21/19 05:17 Last Admin: 07/22/19 12:20 Dose: 3 mls/min Documented by: Ipratropium [place] (Atrovent 0.02% 0.5mg/2.5ml) 0.5 mg INH Q4H PRN PRN Reason: Shortness Of Breath/Wheezing Stop: 08/21/19 05:17 Ipratropium [place] (Atrovent 0.02% 0.5mg/2.5ml) 0.5 mg NEB Q4R [facility] Stop: 08/25/19 10:59 Last Admin: 07/31/19 11:21 Dose: 0.5 mg Documented by: Ketorolac Tromethamine (Toradol) 15 mg IV Q6H PRN PRN Reason: Pain Levalbuterol HCl (Xopenex 1.25mg/0.5ml Neb) 1.25 mg NEB Q4R [facility] Stop: 08/26/19 18:59 Last Admin: 07/31/19 11:21 Dose: 1.25 mg Documented by: Miscellaneous (Remove Nicoderm Patch) 1 ea N/A [facility] Stop: 08/22/19 20:59 Last Admin: 07/30/19 21:23 Dose: 1 ea Documented by: Morphine Sulfate (Morphine Sulfate) 2 - 4 mg IV Q2H PRN; Protocol PRN Reason: Pain unresponsive to Percocet Stop: 08/10/19 20:21 Last Admin: 07/29/19 00:45 Dose: 2 mg Documented by: Multivitamins/Minerals (Multivitamin W/ Minerals Tab) [facility] [place] Stop[facility] 08/21/19 08:59 Last Admin: 07/31/19 08:44 Dose: 1 tab Documented by: Nicotine (Nicoderm Cq) 21 mg [facility] [place] Stop: 08/22/19 14:29 Last Admin: 07/31/19 08:43 Dose: Not Given Documented by: Nitroglycerin (Nitrostat) 0.4 mg SL UD PRN PRN Reason: Chest Pain Stop: 08/21/19 05:17 Ondansetron HCl (Zofran) 4 mg IV Q6H PRN PRN Reason: Nausea Stop: 08/21/19 05:17 Oxycodone/Acetaminophen (Percocet 5mg/325mg) 1 - 2 tab PO Q4H PRN; Protocol PRN Reason: Pain Stop: 08/10/19 18:26 Last Admin: 07/28/19 23:43 Dose: 1 tab Documented by: Psyllium Hydrophilic Mucilloid (Metamucil) 1 pkt PO [facility] Stop: 08/22/19 15:59 Last Admin: 07/31/19 08:39 Dose: 1 pkt Documented by: Thiamine HCl (Vitamin B-1) 50 mg PO [facility] Stop: 08/24/19 08:59 Last Admin: 07/31/19 08:41 Dose: 50 mg Documented by:
--- NOTE | 2019-07-31 12:21 | Hospitalist Progress Note ---
Date of Service July 31, 2019 Assessment & Plan (1) Pneumonia: Pneumonia: likely secondary to Aspiration Bilateral pleural effusion CT chest: 1. Allowing for suboptimal image quality, no evidence of pulmonary embolus. 2. Upper lobe peripheral groundglass and solid infiltrates. The distribution of these inflammatory changes suggests an airway etiology. Differential considerations include eosinophilic pneumonia, eosinophilic granulomatosis with polyangiitis, cryptogenic organizing pneumonia, or an atypical infectious pneumonia among other etiologies. Follow-up chest CT in 3 months after treatment recommended. 3. Small right pleural effusion with right basilar atelectasis. CXR: right sided pleural effusion Chest US ordered: Right-sided 850 cc, left side 500 cc Status post thoracentesis with Pleurx catheter placement on July 27, 2019 Draining 1.7 L so far, daily chest x-rays, if with no improvement may need VATS procedure Continue Lasix 40 mg daily Pleural fluid-Gram stain negative, AFB stain negative, cultures pending On intravenous Zosyn and doxycycline--> transitioned to Augmentin--> then transition to Zosyn Continue Solu-Medrol, continue [facility] [employer] on board-appreciate input and recommendation We will change intravenous Solu-Medrol to oral prednisone from tomorrow We will continue current medications Status post removal of the chest tube He has been feeling a lot better We will get PT and OT evaluation Hypoxia secondary to Pneumonia, bilateral pleural effusions echo ordered: Left ventricular systolic function is normal, no significant valvular heart disease there is borderline concentric LVH monitor We will get to do steps O2 saturation test before discharge Abdominal pain Has had nonspecific abdominal pain Likely secondary to constipation (+) bilateral inguinal hernia with fat herniation , no intestinal herniation and no obstruction resolved No active pain in the abdomen Alcoholism /alcohol abuse on gabapentin protocol no signs of overt withdrawal We will have outpatient alcohol rehab Strongly advised not to drink anymore alcohol Depression Continue current medication Obesity counseled on weight loss Dyslipidemia Continue statin Tobacco use disorder counseled on cessation CODE STATUS Full Disposition Likely to be discharged this afternoon following PT/OT evaluation Subjective 07/29 Patient is seen and examined in telemetry unit Status post right Pleurx catheter placement and still draining considerable amount through the tube He has been feeling a lot better and denies any shortness of breath at rest 07/30 The patient was seen and examined in telemetry unit He still has a chest tube in and complains of some pain with deep breathing Denies any other symptoms 07/31 The patient was seen and examined in telemetry unit Is a status post removal of the chest tube from the right side Still has been complaining of some pain with deep breathing Denies any other symptoms Ready to be discharged from the hospital Review of Systems Review of Systems: All systems reviewed and unremarkable except as noted below Respiratory: Pain at the chest tube removal site with deep breathing Gastrointestinal: no abdominal pain and no bloating Physical Exam Physical Exam: No apparent distress at rest Constitutional: well developed, well nourished, + ill appearing and + obese Eyes: PERRL, conjunctivae normal, anicteric sclerae ENMT: external ear and nose normal, oropharynx normal Neck: trachea midline, no thyromegaly Respiratory: no respiratory distress Auscultation: + diminished lung sounds (Mostly the right lower lung ), + crackles (Upper lung pichardo) and + wheezes Cardiovascular: Rate/Rhythm: regular rate and regular rhythm Gastrointestinal (Abdomen): Inspection/Auscultation: + abdomen distended Percussion/Palpation: abdomen soft; abdomen nontender Neurologic: moves all extremities; no focal motor deficits Psychiatric: A+Ox3, euthymic affect Lymphatic: no cervical or axillary lymphadenopathy Results & Data Vital Signs (Past 12 Hours) Vital Signs Temp Pulse Pulse Pulse Pulse Pulse Resp 07/31/19 11:56 36.7 C 88 18 07/31/19 11:18 86 18 07/31/19 11:16 88 86 70 07/31/19 08:15 36.6 C 70 18 07/31/19 08:00 67 07/31/19 07:21 68 17 07/31/19 03:11 83 16 07/31/19 03:00 36.4 C L 80 20 Resp Resp Resp BP BP Pulse Ox Pulse Ox 07/31/19 11:56 146/98 H 92 07/31/19 11:18 95 07/31/19 11:16 19 18 17 92 07/31/19 08:15 121/79 93 07/31/19 08:00 07/31/19 07:21 93 07/31/19 03:11 96 07/31/19 03:00 134/81 98 Pulse Ox Pulse Ox 07/31/19 11:56 07/31/19 11:18 07/31/19 11:16 94 95 07/31/19 08:15 07/31/19 08:00 07/31/19 07:21 07/31/19 03:11 07/31/19 03:00 Laboratory Results Short CBC 07/31/19 Range/Units 05:55 WBC 19.24 H (4.8-10.8) K/uL Hgb 15.5 (14.0-18.0) g/dL Hct 45.2 (42-52) % Plt Count 305 (130-400) K/uL BMP 07/31/19 05:55 Sodium 137 Potassium 3.6 D Chloride 99 Carbon Dioxide 32 BUN 23 H Creatinine 0.90 Glucose 92 Calcium 8.3 L Medications Administered Current Inpatient Medications Acetaminophen (Tylenol) 650 mg PO Q4H PRN PRN Reason: Pain or Fever Stop: 08/21/19 05:17 Last Admin: 07/26/19 01:16 Dose: 650 mg Documented by: Amoxicillin/Clavulanate Potassium (Augmentin 875mg) 1 tab PO BIDM [facility] Stop: 08/14/19 08:01 Atorvastatin Calcium (Lipitor) 10 mg PO [facility] Stop: 08/21/19 08:59 Last Admin: 07/31/19 08:44 Dose: 10 mg Documented by: Clonidine HCl (Catapres) 0.1 mg PO BID [facility] Stop: 08/21/19 10:14 Last Admin: 07/31/19 08:40 Dose: 0.1 mg Documented by: Cyclobenzaprine HCl (Flexeril) 10 mg PO TID PRN PRN Reason: muscle spasm Stop: 08/21/19 05:17 Last Admin: 07/27/19 08:12 Dose: 10 mg Documented by: Fluoxetine HCl (Prozac) [facility] [place] Stop: 08/21/19 08:59 Last Admin: 07/31/19 08:42 Dose: 20 mg Documented by: Fluoxetine HCl (Prozac) 40 mg PO DAILY [facility] Stop: 08/21/19 08:59 Last Admin: 07/31/19 08:44 Dose: 40 mg Documented by: Folic Acid (Folvite) 1 mg PO QAM [facility] Stop: 08/24/19 08:59 Last Admin: 07/31/19 08:41 Dose: 1 mg Documented by: Furosemide (Lasix) 40 mg PO DAILY [facility] Stop: 08/25/19 08:59 Last Admin: 07/31/19 08:41 Dose: 40 mg Documented by: Lorazepam (Ativan) 1.5 mg in 3 mls @ 3 mls/min IV Q2H PRN PRN Reason: Alcohol Withdrawal Stop: 08/21/19 05:17 Last Admin: 07/22/19 12:20 Dose: 3 mls/min Documented by: Ipratropium [place] (Atrovent 0.02% 0.5mg/2.5ml) 0.5 mg INH Q4H PRN PRN Reason: Shortness Of Breath/Wheezing Stop: 08/21/19 05:17 Ipratropium [place] (Atrovent 0.02% 0.5mg/2.5ml) 0.5 mg NEB Q4R [facility] Stop: 08/25/19 10:59 Last Admin: 07/31/19 11:21 Dose: 0.5 mg Documented by: Ketorolac Tromethamine (Toradol) 15 mg IV Q6H PRN PRN Reason: Pain Levalbuterol HCl (Xopenex 1.25mg/0.5ml Neb) 1.25 mg NEB Q4R [facility] Stop: 08/26/19 18:59 Last Admin: 07/31/19 11:21 Dose: 1.25 mg Documented by: Miscellaneous (Remove Nicoderm Patch) 1 ea N/A HS [facility] Stop: 08/22/19 20:59 Last Admin: 07/30/19 21:23 Dose: 1 ea Documented by: Morphine Sulfate (Morphine Sulfate) 2 - 4 mg IV Q2H PRN; Protocol PRN Reason: Pain unresponsive to Percocet Stop: 08/10/19 20:21 Last Admin: 07/29/19 00:45 Dose: 2 mg Documented by: Multivitamins/Minerals (Multivitamin W/ Minerals Tab) 1 tab PO QAM [facility] Stop: 08/21/19 08:59 Last Admin: 07/31/19 08:44 Dose: 1 tab Documented by: Nicotine (Nicoderm Cq) 21 mg TD QAM [facility] Stop: 08/22/19 14:29 Last Admin: 07/31/19 08:43 Dose: Not Given Documented by: Nitroglycerin (Nitrostat) 0.4 mg SL UD PRN PRN Reason: Chest Pain Stop: 08/21/19 05:17 Ondansetron HCl (Zofran) 4 mg IV Q6H PRN PRN Reason: Nausea Stop: 08/21/19 05:17 Oxycodone/Acetaminophen (Percocet 5mg/325mg) 1 - 2 tab PO Q4H PRN; Protocol PRN Reason: Pain Stop: 08/10/19 18:26 Last Admin: 07/28/19 23:43 Dose: 1 tab Documented by: Psyllium Hydrophilic Mucilloid (Metamucil) 1 pkt PO [facility] Stop: 08/22/19 15:59 Last Admin: 07/31/19 08:39 Dose: 1 pkt Documented by: Thiamine HCl (Vitamin B-1) 50 mg PO QAM [facility] Stop: 08/24/19 08:59 Last Admin: 07/31/19 08:41 Dose: 50 mg Documented by:
[2019-07-31] MEDS ORDERED: AMOXICILLIN/CLAVULANATE 875 MG TAB PO SCH (17:00)
--- NOTE | 2019-08-01 08:53 | Discharge Summary ---
Date of Service August 01, 2019 Admission HPI Per Admitting Provider DICTATED BY: Krzysztof Sotomayor MD DATE OF ADMISSION: 07/22/2019 CHIEF COMPLAINT: Shortness of breath, abdominal pain, constipation. HISTORY OF PRESENT ILLNESS: This is a 54-year-old male with past medical history significant for morbid obesity, hyperlipidemia, impaired fasting glucose, depression, tobacco disorder, alcohol abuse, presents with complaining of shortness of breath and abdominal discomfort and constipation. The patient had sprained his back a few days ago. He was in the ER in July 18 for back pain. He was discharged on pain medications and Flexeril. The patient is also taking oxycodone from his friend's which is 3 years old. He is somewhat constipated. He had moved bowels today morning, but it was a small amount. Around 10:30 in the night, he developed shortness of breath, also chest pain when taking deep breaths. He has a smoker's cough. Denies any fever, chills. Complains of nausea. Requesting to help him relieve his constipation. Denies any headache, no blurred vision, no sore throat, no difficulty swallowing. Appetite is okay. Ambulates okay. He drinks 12 beers every day and drank today too. Denies any withdrawal symptoms in the past. Denies any blood in the stools or black stools. Denies any burning micturition or hematuria. Has mild swelling in the legs, no rash. Admission Exam Per Admitting Provider GENERAL: The patient is morbidly obese, somewhat tachycardic currently. HEENT: No pallor, no icterus. Pupils equal, round, reactive to light. NECK: No JVD, no neck masses, no carotid bruits. CARDIOVASCULAR: S1, S2 heard, regular rate and rhythm, no murmur, no gallop. RESPIRATORY SYSTEM: Normal AP diameter. No accessory muscle use. No wheezing, no crackles. ABDOMEN: Soft, bowel sounds present. Mild diffuse tenderness, no guarding, no rigidity. Somewhat distended. CENTRAL NERVOUS SYSTEM: Cranial nerves II-XII grossly nonfocal. EXTREMITIES: Mild pedal edema, no erythema seen. Principal Diagnosis Pneumonia likely due to aspiration with complication, status post pigtail drainage, acute hypoxic respiratory failure, alcohol abuse, tobacco use the, obesity Discharge Exam Constitutional well developed, well nourished, + ill appearing and + obese Eyes PERRL, conjunctivae normal, anicteric sclerae ENMT external ear and nose normal, oropharynx normal Neck trachea midline, no thyromegaly Respiratory no respiratory distress Auscultation: + diminished lung sounds (Mostly the right lower lung ), + crackles (Upper lung pichardo) and + wheezes Cardiovascular Rate/Rhythm: regular rate and regular rhythm Gastrointestinal (Abdomen) Inspection/Auscultation: + abdomen distended Percussion/Palpation: abdomen soft; abdomen nontender Neurologic moves all extremities; no focal motor deficits Psychiatric A+Ox3, euthymic affect Lymphatic no cervical or axillary lymphadenopathy Discharge Data Allergies Allergy/AdvReac Type Severity Reaction Status Date / Time No Known Allergies Allergy Unknown Unverified 07/22/19 00:10 Consultations 07/22/19 02:37 ED Decision to Admit Stat 07/22/19 05:18 Consult Case Management - Discharge Planning Routine 07/22/19 09:47 Consult Pulmonology Routine Ordered Studies 07/22/19 00:59 CT abd pelvis IV con only Urgent CT angio chest PE protocol Urgent 07/22/19 02:14 US venous doppler LE BI Urgent 07/27/19 12:12 US point of care ultrasound Routine 07/27/19 12:35 US effusion-chest/mediastinum Routine 07/27/19 15:32 US point of care ultrasound Routine Hospital Course (1) Pneumonia: Pneumonia: likely secondary to Aspiration Bilateral pleural effusion CT chest: 1. Allowing for suboptimal image quality, no evidence of pulmonary embolus. 2. Upper lobe peripheral groundglass and solid infiltrates. The distribution of these inflammatory changes suggests an airway etiology. Differential considerations include eosinophilic pneumonia, eosinophilic granulomatosis with polyangiitis, cryptogenic organizing pneumonia, or an atypical infectious pneumonia among other etiologies. Follow-up chest CT in 3 months after treatment recommended. 3. Small right pleural effusion with right basilar atelectasis. 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-appreciate input and recommendation We will change intravenous Solu-Medrol to oral prednisone from tomorrow We will continue current medications Status post removal of the chest tube He has been feeling a lot better We will get PT and OT evaluation Hypoxia secondary to Pneumonia, bilateral pleural effusions echo ordered: Left ventricular systolic function is normal, no significant valvular heart disease there is borderline concentric LVH monitor We will get to do steps O2 saturation test before discharge Abdominal pain Has had nonspecific abdominal pain Likely secondary to constipation (+) bilateral inguinal hernia with fat herniation , no intestinal herniation and no obstruction resolved No active pain in the abdomen Alcoholism /alcohol abuse on gabapentin protocol no signs of overt withdrawal We will have outpatient alcohol rehab Strongly advised not to drink anymore alcohol Depression Continue current medication Obesity counseled on weight loss Dyslipidemia Continue statin Tobacco use disorder counseled on cessation CODE STATUS Full Disposition Likely to be discharged this afternoon following PT/OT evaluation Total Time Total Time Spent Total Time Spent (In Minutes): 35 minutes Total Time Includes: Examination of the Patient, Discharge Planning, Medication Reconciliation and Communication With Other Providers Discharge Plan Discharge Items Patient Disposition: Home - Self-Care Reason For Visit: SOB, ABDOMINAL PAIN Discharge Diagnosis: Pneumonia likely due to aspiration with complication, status post pigtail drainage, acute hypoxic respiratory failure, alcohol abuse, tobacco use the, obesity Condition: Good Discharge Goals: Decrease discomfort, Improve function and Increase independence Activity: Resume your previous activity Non-emergency contact: Primary Care Provider Call non-emergency contact if: you have any medication questions and your symptoms worsen Follow-up/Referrals: Steve Rodarte, [Primary Care Provider] - 08/06/19 10:05 am (Your appointment is with Dr. Serrato. Dr. Rodarte is not available. Please have follow-up with alcohol and when he was group) Diet: Carb Consistent or DM2 Addtl Provider Instructions: New medications Augmentin 850 mg twice daily for 14 days Lactinex twice daily Clonidine 0.1 mg twice daily Folic acid 1 mg daily Furosemide 40 mg daily Thiamine 50 mg daily Strongly advised to reduce weight and quit smoking and alcohol Prescriptions: New furosemide 40 mg Tablet 40 mg PO DAILY 30 Days Qty: 30 RF: 0 clonidine HCl 0.1 mg Tablet 0.1 mg PO BID 30 Days Qty: 60 RF: 0 nicotine [Nicoderm CQ] 21 mg/24 hr Patch 24 Hour 21 mg transdermal QAM 30 Days Qty: 30 RF: 0 folic acid 1 mg Tablet 1 mg PO QAM 30 Days Qty: 30 RF: 0 thiamine HCl (vitamin B1) [Vitamin B-1] 50 mg Tablet 50 mg PO QAM 30 Days Qty: 30 RF: 0 amoxicillin-pot clavulanate 875-125 mg Tablet 1 tab PO BIDM 12 Days Qty: 24 RF: 0 Certavite-Antioxidant 18-400 mg-mcg Tablet 1 tab PO QAM 30 Days Qty: 30 RF: 0 Lactinex 1 million cell tablet,chewable 2 tab PO BID Qty: 60 RF: 0 Continued atorvastatin 10 mg tablet 10 mg PO QAM RF: 0 fluoxetine 20 mg capsule 20 mg PO QAM RF: 0 cyclobenzaprine 10 mg tablet 10 mg PO TID PRN (Reason: muscle spasm) Qty: 30 RF: 0 ibuprofen 600 mg Tablet 600 mg PO Q6H PRN (Reason: Pain) RF: 0 Prozac 40 mg 40 mg PO DAILY RF: 0 Discontinued prednisone 10 mg Tablet 10 mg PO DAILY RF: 0 Stand-Alone Forms: [facility]/Other Patient Handouts: Prediabetes, Diabetes Healthy Meals, Diabetes Carbs, Pneumonia, Diabetes Exercise Benefits, Diabetes Exercise Get Started, Diabetes Activity Tips, Diabetes Manage A1C Test Discharge Orders: Discharge Order (Routine); Ordered 07/31/19 Ordered By: Chris Gomez Admission Data Admit Date/Time: 07/23/19 14:28 Attending Provider: Chris Gomez Admit Provider: Krzysztof Sotomayor Primary Care Provider: Steve Rodarte Other Providers: Krzysztof Sotomayor ; Santos Wilson ; Anthony Lowe ; Nicolasa Jennings ; Ernesto Atkins ; Kathy Eduardo ; Hardy Tai ; Sd Sabillon ; Ashlyn Lopez ; Miko Lynch ; Saumya Patel ; Jose Hemphill ; Deandre Qiunn ; Nancy Tejada ; Manolo Calhoun ; Eric Snow ; Jv Thompson ; Chris Gomez ; Charbel Munroe Service: Telemetry Other Interventions: Discharge Summary Assessment (RN) Last Done: 07/31/19 16:24 DC Date/Time DO NOT enter until pt leaves facility: 07/31/19 16:45
== END 2019-07-31 16:45 | disposition home or self-care (01) | DRG 177 ==
LOC: ED 23:44 → INTOOBSV 07-22 03:18 → 2E 07-22 03:18 → SUATTDRO 07-23 14:28